=== PATIENT | male | born 1975 ===

== ENCOUNTER 2016-12-11 20:26 | Observation (INO) | payer MEDICARE ==
[2016-12-11 20:26] VITALS: BMI 33.5
--- NOTE | 2016-12-11 21:22 | ED PDOC ---
HPI: Psych/Substance Abuse Time Seen by Provider: 12/11/16 21:21 Chief Complaint (Nursing): Alcohol Ingestion Chief Complaint (Provider): alcohol ingestion History Per: Patient, Family (40 y/o male sent to ED for evaluation of aggressive behavior threatening mother and brother that he "would kill them." Admits to drinking. Mother states he has h/o Bipolar disorder and h/o drug abuse. Mother states she feels unsafe.) Past Medical History Reviewed: Historical Data, Nursing Documentation, Vital Signs Vital Signs: Last Vital Signs Temp 98 F 12/11/16 20:28 Pulse 110 H 12/11/16 20:28 Resp 18 12/11/16 20:28 BP 133/95 H 12/11/16 20:28 Pulse Ox 99 12/11/16 20:28 - Medical History PMH: Anxiety, Back Problems, Diabetes, HTN Denies: Arthritis, CHF, COPD, HIV, Hypercholesterolemia, Hypothyroidism, Chronic Kidney Disease, Rheumatoid Arthritis - Surgical History Surgical History: Appendectomy, Back Surgery (neck fusion) - Family History Family History: States: Unknown Family Hx - Immunization History Hx Tetanus Toxoid Vaccination: No Hx Influenza Vaccination: Yes Hx Pneumococcal Vaccination: No - Home Medications Home Medications: Ambulatory Orders Medication Instructions Recorded Exenatide Microspheres [Bydureon] 2 mg IM ONCE 09/09/15 Meclizine [Meclizine*] 25 mg PO TID 09/09/15 Metformin HCl [Glumetza] 1,000 mg PO DAILY 09/09/15 Olmesartan Medoxomil [Benicar] 40 mg PO DAILY 09/09/15 ALPRAZolam [Xanax] 0.5 mg PO BID PRN 09/14/15 Acetaminophen [Tylenol 325mg tab] 650 mg PO Q4 PRN #0 tab 09/14/15 Alprazolam [Xanax Xr] 0.5 mg PO BID PRN #0 09/14/15 Amitriptyline [Elavil] 25 mg PO HS #0 tab 09/14/15 Cyclobenzaprine [Flexeril] 10 mg PO TID PRN #0 tab 09/14/15 Dexamethasone [Decadron Inj] 4 mg IVPB 0600,1400,2200 09/14/15 Docusate [Colace] 100 mg PO BID #0 cap 02/05/16 Famotidine [Pepcid] 20 mg PO DAILY #0 tab 09/14/15 HYDROmorphone [Dilaudid] 2 mg IVP Q3 PRN #0 syr 09/14/15 Losartan [Cozaar] 100 mg PO DAILY #0 tab 09/14/15 Magnesium Hydroxide [Milk Of 15 ml PO DAILY #0 udc 09/14/15 Magnesia] Metformin HCl [Glucophage] 1,000 mg PO DAILY 09/14/15 Ondansetron [Zofran Tab] 4 mg PO QID PRN #0 tab 09/14/15 Zolpidem [Ambien] 5 mg PO HS PRN #0 tab 09/14/15 oxyCODONE [oxyCONTIN Extended 20 mg PO Q8 #0 tabsr 09/14/15 Release Tab] - Allergies Allergies/Adverse Reactions: Allergies Allergy/AdvReac Type Severity Reaction Status Date / Time No Known Allergies Allergy Verified 11/30/16 00:19 Review of Systems ROS Statement: Except As Marked, All Systems Reviewed And Found Negative Physical Exam - Reviewed Nursing Documentation Reviewed: Yes Vital Signs Reviewed: Yes - Physical Exam Appears: Positive for: Well, Non-toxic, No Acute Distress Head Exam: Positive for: ATRAUMATIC, NORMAL INSPECTION, NORMOCEPHALIC Skin: Positive for: Normal Color, Warm, DRY Eye Exam: Positive for: EOMI, Normal appearance, PERRL ENT: Positive for: Normal ENT Inspection Neck: Positive for: Normal, Painless ROM Cardiovascular/Chest: Positive for: Regular Rate, Rhythm Respiratory: Positive for: CNT, Normal Breath Sounds Gastrointestinal/Abdominal: Positive for: Normal Exam, Bowel Sounds, Soft Back: Positive for: Normal Inspection Extremity: Positive for: Normal ROM Neurologic/Psych: Positive for: Alert, Oriented - Laboratory Results Result Diagrams: 12/11/16 21:50 12/11/16 21:50 - ECG O2 Sat by Pulse Oximetry: 99 - Progress ED Course And Treament: SEEN BY CRISIS. D/W WITH DR. KABA PATIENT TO BE [place] [facility] OBSERVATION Date of observation admission: 12/12/16 Time of observation admission: 14:50 - Observation admission statement Patient is being placed in observation because:: PATIENT NEEDS ADDITIONAL EVALUATION AND WILL BE SCREENED BY [facility] PATIENT REQUIRES 1:1 OBSERVATION UNTIL THIS SCREENING. Disposition - Clinical Impression Clinical Impression: Alcohol ingestion, Aggressive behavior - Patient ED Disposition Is Patient to be Admitted: Transfer of Care - Disposition Disposition: Transfer of Care Disposition Time: 05:50 Condition: FAIR Patient Signed Over To: Leonard Valenzuela Handoff Comments: pending [facility] screener
[2016-12-11 21:55] LABS: BASO % 0.4 % (0.0-2.0); EOS # 0.3 K/uL (0.0-0.7); EOS % 3.4 % (0.0-4.0); LYMPH # 2.3 K/uL (1.0-4.3); LYMPH % 30.2 % (20.0-40.0); MEAN CELL VOLUME 90.6 fl (80.0-94.0); MEAN CORPUSCULAR HEMOGLOBIN 30.7 pg (27.0-31.0); MEAN CORPUSCULAR HGB CONC 33.9 g/dL (33.0-37.0); MEAN PLATELET VOLUME 7.8 fl (7.2-11.7); MONO # 0.8 K/uL (0.0-0.8); MONO % 10.9 % (0.0-10.0); NEUT # 4.2 K/uL (1.8-7.0); NEUT % 55.1 % (50.0-75.0); NRBC % 0.1 % (0.0-0.0); RED CELL DISTRIBUTION WIDTH 12.7 % (11.5-14.5); WHITE BLOOD COUNT 7.6 K/uL (4.8-10.8)
[2016-12-11 22:06] LABS: ALB/GLOB RATIO 1.1 (1.0-2.1); ALCOHOL SERUM 226 mg/dl (0-10); ALKALINE PHOSPHATASE 62 U/L (38-126); ALT/SGPT 128 U/L (21-72); AST/SGOT 72 U/L (17-59); BILIRUBIN,TOTAL 0.3 mg/dl (0.2-1.3); BLOOD UREA NITROGEN 16 mg/dl (9-20); CALCIUM 9.3 mg/dL (8.4-10.2); CARBON DIOXIDE 19 mmol/L (22-30); CHLORIDE 112 mmol/L (98-107); GFR AFRICAN-AMERICAN > 60; GLUCOSE,RANDOM 129 mg/dL (75-110); POTASSIUM 4.1 MMOL/L (3.6-5.0); SODIUM 147 mmol/l (132-148)
--- NOTE | 2016-12-12 06:08 | ED PDOC ---
- Laboratory Results Result Diagrams: 12/11/16 21:50 12/11/16 21:50 - ECG O2 Sat by Pulse Oximetry: 99 Medical Decision Making Medical Decision Making: Patient s/o from Brenden Gallardo PA-C at 0600 pending [facility] screener evaluation. Patient s/o to Dr. Adair at 0700 pending [facility] screener evaluation. Scribe Attestation: Documented by Angelic Broderick acting as a scribe for Leonard Valenzuela MD. Provider Scribe Attestation: All medical record entries made by the Scribe were at my direction and personally dictated by me. I have reviewed the chart and agree that the record accurately reflects my personal performance of the history, physical exam, medical decision making, and the department course for this patient. I have also personally directed, reviewed, and agree with the discharge instructions and disposition. Disposition - Clinical Impression Clinical Impression: Alcohol ingestion, Aggressive behavior - POA Present On Arrival: None - Disposition Disposition: Transfer of Care Disposition Time: 02:51 Condition: FAIR Patient Signed Over To: Murali Adair Handoff Comments: pending [facility] screener evaluation
--- NOTE | 2016-12-12 07:16 | ED PDOC ---
- Laboratory Results Result Diagrams: 12/11/16 21:50 12/11/16 21:50 - ECG O2 Sat by Pulse Oximetry: 99 - Progress ED Course And Treament: 1510: [facility] pending. Dr. Olmedo to take over and fu. Medical Decision Making Medical Decision Making: Time: 0700 Patient signed out by Dr. Valenzuela pending [facility] screener evaluation. Scribe Attestation: Documented by Jaycee Mosley acting as a scribe for Marietta Adair MD MD Scribe Attestation: All medical record entries made by the Scribe were at my direction and personally dictated by me. I have reviewed the chart and agree that the record accurately reflects my personal performance of the history, physical exam, medical decision making, and the department course for this patient. I have also personally directed, reviewed, and agree with the discharge instructions and disposition. Disposition - Clinical Impression Clinical Impression: Alcohol ingestion, Aggressive behavior - POA Present On Arrival: None - Disposition Disposition: Transfer of Care Disposition Time: 15:11 Condition: FAIR
[2016-12-12 08:29] VITALS: RESP 18
--- NOTE | 2016-12-12 08:52 | CARD ---
APPROVED REPORT EKG Measurement Heart [id number] MI 128P15 [id number] <Conclusion> Normal sinus rhythm Right bundle branch block Possible Inferior infarct, age undetermined Abnormal ECG
--- NOTE | 2016-12-12 15:22 | ED PDOC ---
- Laboratory Results Result Diagrams: 12/11/16 21:50 12/11/16 21:50 - ECG O2 Sat by Pulse Oximetry: 99 Medical Decision Making Medical Decision Makin: Patient is being transfered to Dr. Olmedo pending [facility] screening. 1530 Evaluated by CW and [facility] screener. Pt stable for discharge. Scribe~Attestation: Documented by Hanna Montanez acting as a scribe for Dr. Adry Olmedo MD. Provider Scribe Attestation: All medical record entries made by the Scribe were at my direction and personally dictated by me. I have reviewed the chart and agree that the record accurately reflects my personal performance of the history, physical exam, medical decision making, and the department course for this patient. I have also personally directed, reviewed, and agree with the discharge instructions and disposition. Disposition - Clinical Impression Clinical Impression: Alcohol ingestion, Aggressive behavior, Alcohol-induced psychosis - POA Present On Arrival: None - Disposition Disposition: Routine/Home Disposition Time: 03:00 Condition: IMPROVED
[2016-12-12 15:42] VITALS: BP 142/95; PULSE 85; TEMP 98.3; O2SAT 98
== END 2016-12-12 15:37 | disposition home or self-care (01) ==
LOC: H.ER 20:26 → H.EROBSV 12-12 02:51
PROVIDERS: ADMIT Emergency Medicine; ATTEND Emergency Medicine
DX: F10.159 Alcohol abuse with alcohol-induced psychotic disorder, unspecified (principal); Y90.7 Blood alcohol level of 200-239 mg/100 ml; E11.9 Type 2 diabetes mellitus without complications; I10 Essential (primary) hypertension; F41.9 Anxiety disorder, unspecified
CPT/HCPCS: 80053; 82948; 85025; 93005; 99285; G0378; G0480

== ENCOUNTER 2017-08-05 14:23 | Emergency (ER) | payer MEDICARE ==
[2017-08-05 14:23] VITALS: BMI 33.5
[2017-08-05 15:20] VITALS: BP 149/90; RESP 16; TEMP 97.5; O2SAT 100
[2017-08-05] MEDS ORDERED: Sodium Chloride 0.9% 1,000 ML IV STA (16:17)
--- NOTE | 2017-08-05 16:30 | ED PDOC ---
HPI: General Adult Time Seen by Provider: 08/05/17 15:20 Chief Complaint (Nursing): Alcohol Ingestion History Per: Patient Additional Complaint(s): Pt. states earlier this morning he woke up with his vertigo which is normal for him. Pt. states he took antivert and 45 minutes alter he developed "uncontrollable chills." States his whole body was shaking but he was alert and conscious. Symptoms lasted for 5 minutes then resolved on its own. Pt. reports feeling very cold. Also states that he's had cough and congestion x 2 days. Also reports to applying a lidocaine patch on his L shoulder and has been taking NyQuil without relief. Pt. admits to being an alcoholic previously and had a total of 8 drinks over the past 3 days. Last drink was at 2200 yesterday. Denies N/V/D, chest pain, SOB, abdominal pain, incontinence, LOC, headache, rash. Past Medical History Reviewed: Historical Data, Nursing Documentation, Vital Signs Vital Signs: Last Vital Signs Temp 97.5 F L 08/05/17 15:19 Pulse 78 08/05/17 15:19 Resp 16 08/05/17 15:19 BP 149/90 08/05/17 15:19 Pulse Ox 100 08/05/17 16:41 - Medical History PMH: Anxiety, Back Problems, Diabetes, HTN Denies: Arthritis, CHF, COPD, Hepatitis, HIV, Hypercholesterolemia, Hypothyroidism, Chronic Kidney Disease, Rheumatoid Arthritis, Seizures, Sexually Transmitted Disease - Surgical History Surgical History: Appendectomy, Back Surgery (neck fusion x 2 last time a year ago) - Family History Family History: States: Unknown Family Hx - Immunization History Hx Tetanus Toxoid Vaccination: No Hx Influenza Vaccination: Yes Hx Pneumococcal Vaccination: No - Home Medications Home Medications: Ambulatory Orders Medication Instructions Recorded Dextroamphetamine/Amphetamine 20 mg PO BID 05/07/17 [Adderall 20 mg Tablet] Febuxostat [Uloric] 40 mg PO DAILY 05/07/17 Ibuprofen/Famotidine [Duexis 26.6 1 tab PO BID PRN 05/07/17 mg-800 mg] LORazepam [Ativan] 0.5 mg PO DAILY 05/07/17 Meclizine [Antivert] 25 mg PO TID #21 tab 05/08/17 Ondansetron ODT [Zofran ODT] 1 odt PO BID PRN #6 odt 05/08/17 - Allergies Allergies/Adverse Reactions: Allergies Allergy/AdvReac Type Severity Reaction Status Date / Time No Known Allergies Allergy Verified 05/07/17 21:47 Review of Systems ROS Statement: Except As Marked, All Systems Reviewed And Found Negative Physical Exam - Reviewed Nursing Documentation Reviewed: Yes Vital Signs Reviewed: Yes - Physical Exam Appears: Positive for: Well, Non-toxic, No Acute Distress Head Exam: Positive for: ATRAUMATIC, NORMAL INSPECTION, NORMOCEPHALIC Skin: Positive for: Normal Color, Warm. Negative for: Rash Eye Exam: Positive for: EOMI, Normal appearance, PERRL ENT: Positive for: Normal ENT Inspection Neck: Positive for: Normal, Painless ROM Cardiovascular/Chest: Positive for: Regular Rate, Rhythm Respiratory: Positive for: CNT, Normal Breath Sounds Gastrointestinal/Abdominal: Positive for: Normal Exam, Bowel Sounds, Soft. Negative for: Tenderness Back: Positive for: Normal Inspection Extremity: Positive for: Normal ROM Neurologic/Psych: Positive for: Alert, Oriented, Other (no tremors noted). Negative for: Aphasia, Facial Droop - Laboratory Results Result Diagrams: 08/05/17 17:09 08/05/17 17:09 - ECG ECG: Positive for: Interpreted By Me ECG Rhythm: Positive for: Sinus Rhythm. Negative for: ST/T Changes Rate: 75 O2 Sat by Pulse Oximetry: 100 - Progress ED Course And Treament: Labs ordered. IV NS bolus ordered. Re-evaluation Time: 18:16 Condition: Re-examined Disposition - Clinical Impression Clinical Impression: Viral syndrome - Patient ED Disposition Is Patient to be Admitted: No - Disposition Referrals: [facility] [Outside] [facility] [Outside] Disposition: Routine/Home Disposition Time: 18:17 Condition: IMPROVED Additional Instructions: Follow up with [facility] in 2 days for further evaluation. Return to ED immediately for any concerns or questions. Instructions: Viral Syndrome (ED) Forms: [employer] ([place])
[2017-08-05 17:16] LABS: BASO % 0.7 % (0.0-2.0); EOS % 0.4 % (0.0-4.0); HEMATOCRIT 43.7 % (35.0-51.0); LYMPH % 16.5 % (20.0-40.0); MEAN CELL VOLUME 92.9 fl (80.0-94.0); MEAN CORPUSCULAR HEMOGLOBIN 31.2 pg (27.0-31.0); MEAN CORPUSCULAR HGB CONC 33.6 g/dL (33.0-37.0); MEAN PLATELET VOLUME 7.6 fl (7.2-11.7); MONO # 0.6 K/uL (0.0-0.8); NEUT # 4.6 K/uL (1.8-7.0); NEUT % 73.4 % (50.0-75.0); RED CELL DISTRIBUTION WIDTH 13.4 % (11.5-14.5); WHITE BLOOD COUNT 6.2 K/uL (4.8-10.8)
[2017-08-05 17:19] LABS: RBC URINE < 1 /hpf (0-3); URINE BILIRUBIN NEGATIVE (NEGATIVE); URINE BLOOD NEGATIVE (NEGATIVE); URINE COLOR STRAW (YELLOW); URINE GLUCOSE (UA) NEG (Normal); URINE KETONE NEGATIVE (NEGATIVE); URINE LEUKOCYTE ESTERASE NEG Leu/uL (Negative); URINE PROTEIN NEGATIVE (NEGATIVE); URINE UROBILINOGEN 0.2-1.0 mg/dL (0.2-1.0); WBC URINE < 1 /hpf (0-5)
[2017-08-05 17:27] LABS: ALB/GLOB RATIO 1.3 (1.0-2.1); ALCOHOL SERUM < 10 mg/dl (0-10); ALKALINE PHOSPHATASE 56 U/L (38-126); ALT/SGPT 57 U/L (21-72); AST/SGOT 47 U/L (17-59); BILIRUBIN,TOTAL 0.6 mg/dl (0.2-1.3); BLOOD UREA NITROGEN 12 mg/dl (9-20); CALCIUM 9.2 mg/dL (8.4-10.2); CARBON DIOXIDE 28 mmol/L (22-30); CHLORIDE 101 mmol/L (98-107); GFR AFRICAN-AMERICAN > 60; GLUCOSE,RANDOM 105 mg/dL (75-110); POTASSIUM 3.8 MMOL/L (3.6-5.0); SODIUM 137 mmol/l (132-148); TOTAL PROTEIN 8.1 G/DL (6.3-8.2)
[2017-08-05 18:18] VITALS: PULSE 75
--- NOTE | 2017-08-06 09:29 | CARD ---
APPROVED REPORT EKG Measurement Heart [id number] [place] 130P27 [id number] <Conclusion> Normal sinus rhythm Right bundle branch block Abnormal ECG
== END 2017-08-05 19:07 | disposition home or self-care (01) ==
LOC: H.ER 14:23
DX: B34.9 Viral infection, unspecified (principal); E11.9 Type 2 diabetes mellitus without complications; F41.9 Anxiety disorder, unspecified; I10 Essential (primary) hypertension
CPT/HCPCS: 80053; 81003; 85025; 87040; 87804; 93005; 99283; G0480; J7040

== ENCOUNTER 2018-01-17 13:28 | Inpatient (IN) | payer MEDICARE ==
[2018-01-17 13:29] VITALS: BMI 33.5
[2018-01-17] MEDS ORDERED: Famotidine 20mg/50ml Premix IVPB STA (13:52)
[2018-01-17] MEDS ORDERED: Sodium Chloride 0.9% 1,000 ML IV STA (13:52)
--- NOTE | 2018-01-17 13:55 | ED PDOC ---
HPI: Abdomen Time Seen by Provider: 01/17/18 13:49 Chief Complaint (Nursing): GI Problem History Per: Patient Onset/Duration Of Symptoms: Days (1) Current Symptoms Are (Timing): Still Present Context: Food Severity: Moderate Location Of Pain/Discomfort: Epigastric Quality Of Discomfort: Unable To Describe Associated Symptoms: Nausea, Vomiting, Diarrhea. denies: Fever, Urinary Symptoms Exacerbating Factors: None Alleviating Factors: None Additional Complaint(s): Epigastric abd pain assoc with NVD since this AM. Denies fever or blood in stool or vomitus. Past Medical History Vital Signs: Last Vital Signs Temp 98.5 F 01/17/18 13:45 Pulse 123 H 01/17/18 13:45 Resp 16 01/17/18 13:45 BP 164/94 H 01/17/18 13:45 Pulse Ox 97 01/17/18 13:56 - Medical History PMH: Anxiety, Back Problems, Diabetes, HTN Denies: Arthritis, CHF, COPD, Hepatitis, HIV, Hypercholesterolemia, Hypothyroidism, Chronic Kidney Disease, Rheumatoid Arthritis, Seizures, Sexually Transmitted Disease - Surgical History Surgical History: Appendectomy, Back Surgery (neck fusion x 2 last time a year ago) - Family History Family History: States: Unknown Family Hx - Immunization History Hx Tetanus Toxoid Vaccination: No Hx Influenza Vaccination: Yes Hx Pneumococcal Vaccination: No - Home Medications Home Medications: Ambulatory Orders Medication Instructions Recorded Dextroamphetamine/Amphetamine 20 mg PO BID 05/07/17 [Adderall 20 mg Tablet] Febuxostat [Uloric] 40 mg PO DAILY 05/07/17 Ibuprofen/Famotidine [Duexis 26.6 1 tab PO BID PRN 05/07/17 mg-800 mg] LORazepam [Ativan] 0.5 mg PO DAILY 05/07/17 Meclizine [Antivert] 25 mg PO TID #21 tab 05/08/17 Ondansetron ODT [Zofran ODT] 1 odt PO BID PRN #6 odt 05/08/17 - Allergies Allergies/Adverse Reactions: Allergies Allergy/AdvReac Type Severity Reaction Status Date / Time No Known Allergies Allergy Verified 01/17/18 13:45 Review of Systems ROS Statement: Except As Marked, All Systems Reviewed And Found Negative Gastrointestinal: Positive for: Nausea, Vomiting, Abdominal Pain, Diarrhea Physical Exam - Reviewed Nursing Documentation Reviewed: Yes Vital Signs Reviewed: Yes - Physical Exam Appears: Positive for: Non-toxic, Uncomfortable Head Exam: Positive for: ATRAUMATIC, NORMAL INSPECTION, NORMOCEPHALIC Skin: Positive for: Normal Color, Warm, DRY Eye Exam: Positive for: EOMI, Normal appearance, PERRL ENT: Positive for: Normal ENT Inspection Neck: Positive for: Normal, Painless ROM Cardiovascular/Chest: Positive for: Regular Rate, Rhythm Respiratory: Positive for: CNT, Normal Breath Sounds Gastrointestinal/Abdominal: Positive for: Soft, Tenderness (epigastric) Back: Positive for: Normal Inspection Extremity: Positive for: Normal ROM Neurologic/Psych: Positive for: Alert, Oriented - Laboratory Results Result Diagrams: 01/17/18 13:50 01/17/18 13:50 - ECG O2 Sat by Pulse Oximetry: 97 Disposition - Clinical Impression Clinical Impression: Cholecystitis - Patient ED Disposition Is Patient to be Admitted: Yes - Disposition Disposition Time: 16:24 Condition: FAIR Forms: [employer] ([place]) - Pt Status Changed To: Hospital Disposition Of: Inpatient - Admit Certification Admit to Inpatient:: After my assessment, the patient will require hospitalization for at least two midnights. This is because of the severity of symptoms shown, intensity of services needed, and/or the medical risk in this patient being treated as an outpatient. - POA Present On Arrival: None
[2018-01-17 14:12] LABS: BASO % 0.5 % (0.0-2.0); EOS # 0.1 K/uL (0.0-0.7); EOS % 0.6 % (0.0-4.0); HEMOGLOBIN 17.6 g/dL (12.0-18.0); LYMPH # 1.9 K/uL (1.0-4.3); LYMPH % 18.7 % (20.0-40.0); MEAN CELL VOLUME 91.5 fl (80.0-94.0); MEAN CORPUSCULAR HEMOGLOBIN 31.2 pg (27.0-31.0); MEAN CORPUSCULAR HGB CONC 34.1 g/dL (33.0-37.0); MEAN PLATELET VOLUME 7.9 fl (7.2-11.7); MONO # 0.9 K/uL (0.0-0.8); MONO % 9.4 % (0.0-10.0); NEUT # 7.1 K/uL (1.8-7.0); NEUT % 70.8 % (50.0-75.0); NRBC % 0.2 % (0.0-0.0); RBC 5.62 Mil/uL (4.40-5.90); RED CELL DISTRIBUTION WIDTH 13.1 % (11.5-14.5)
[2018-01-17 14:18] LABS: ALBUMIN 4.5 g/dL (3.5-5.0); CALCIUM 9.2 mg/dL (8.4-10.2); GFR AFRICAN-AMERICAN > 60; GFR NON-AFRICAN AMERICAN > 60; LIPASE 130 U/L (23-300)
[2018-01-17 14:21] LABS: ALT/SGPT 119 U/L (21-72); AST/SGOT 99 U/L (17-59); BLOOD UREA NITROGEN 9 mg/dl (9-20)
[2018-01-17] MEDS ORDERED: Famotidine 20mg/50ml 20 MG/50 ML BAG IVPB ONE (14:22)
--- NOTE | 2018-01-17 16:12 | US ---
HISTORY: elevated LFTs COMPARISON: None. TECHNIQUE: Sonographic evaluation of the right upper quadrant of the abdomen. FINDINGS: LIVER: At the upper limits of normal in size, measuring 17.2 cm in length. Increased echogenicity of the liver parenchyma. No mass. No intrahepatic bile duct dilatation. GALLBLADDER: Cholelithiasis with borderline gallbladder wall thickening. Sonographic Liu's sign was elicited. COMMON BILE DUCT: Measures 5 mm. No stones. No dilatation. PANCREAS: Not well visualized RIGHT KIDNEY: Measures 11.5 x 6.3 x 5.9 cm in length. Normal echogenicity. No calculus, mass, or hydronephrosis. AORTA: No aneurysmal dilatation. IVC: Unremarkable. OTHER FINDINGS: None . IMPRESSION: Cholelithiasis with borderline gallbladder wall thickening and positive sonographic Liu's sign. Findings are suspicious for acute cholecystitis. Borderline hepatomegaly with steatosis.
[2018-01-17] MEDS ORDERED: Piperacillin/Tazobact 3.375 GM in Sodium Chloride 0.9% 100 ML IVPB STA (16:24)
[2018-01-17] MEDS ORDERED: Piperacillin/Tazobact 3.375 gm Inj IVPB ONE (17:17)
--- NOTE | 2018-01-17 17:22 | CP.PCM.CON ---
History of Present Illness - History of Present Illness History of Present Illness: General Surgery Consult Note: Dr. Szymanski 42M with PMHx of HTN, DM, presents to [facility] ED with complaints of nausea/ vomiting. Patient reports yesterday night he had a large dinner consisting of fish, chick, and medium rare steak. He reports hours after having dinner he began having projectile vomiting and diarrhea. Patient reports having multiple bouts of emesis and diarrhea since the onset early this morning. Patient reports abdominal pain is generalized and secondary to multiple bouts of non- bloody emesis and diarrhea. He denies fever/chills, chest pain, shortness of breath, dysuria. PMHx: HTN, DM PSurgHx: Cervical spine fusion, lumbar spine fusion, Open Appendectomy(2006) Allergies: NKDA Fam Hx: Non-contributory Review of Systems - Review of Systems Review of Systems: 12 pt ROS unremarkable except as stated in HPI Past Patient History - Infectious Disease Hx of Infectious Diseases: None - Past Medical History & Family History Past Medical History?: Yes - Past Social History Smoking Status: Light Smoker < 10 Cigarettes Daily - CARDIAC Hx Congestive Heart Failure: No Hx Hypercholesterolemia: No Hx Hypertension: Yes - PULMONARY Hx Chronic Obstructive Pulmonary Disease (COPD): No - NEUROLOGICAL Hx Seizures: No - HEENT Hx HEENT Problems: No - RENAL Hx Chronic Kidney Disease: No - ENDOCRINE/METABOLIC Hx Hypothyroidism: No - HEMATOLOGICAL/ONCOLOGICAL Hx Human Immunodeficiency Virus (HIV): No - INTEGUMENTARY Hx Dermatological Problems: No - MUSCULOSKELETAL/RHEUMATOLOGICAL Hx Arthritis: No Hx Rheumatoid Arthritis: No - GASTROINTESTINAL Hx Gastrointestinal Disorders: No - GENITOURINARY/GYNECOLOGICAL Hx Sexually Transmitted Disorders: No - PSYCHIATRIC Hx Anxiety: Yes - SURGICAL HISTORY Hx Appendectomy: Yes - ANESTHESIA Hx Anesthesia: Yes Hx Anesthesia Reactions: No Meds Allergies/Adverse Reactions: Allergies Allergy/AdvReac Type Severity Reaction Status Date / Time No Known Allergies Allergy Verified 01/17/18 13:45 - Medications Medications: Current Medications Sodium Chloride (Sodium Chloride 0.9%) 1,000 mls @ 100 mls/hr IV .Q10H STA Stop: 01/17/18 23:51 Last Admin: 01/17/18 14:24 Dose: 100 mls/hr Piperacillin Sod/Tazobactam (Sod 3.375 gm/ Sodium Chloride) 100 mls @ 100 mls/ hr IVPB STAT STA PRN Reason: Protocol Stop: 01/17/18 17:23 Physical Exam - Constitutional Appears: Non-toxic, No Acute Distress - Head Exam Head Exam: NORMOCEPHALIC - Eye Exam Eye Exam: EOMI, Normal appearance - ENT Exam ENT Exam: Mucous Membranes Moist - Respiratory Exam Respiratory Exam: NORMAL BREATHING PATTERN - Cardiovascular Exam Cardiovascular Exam: +S1, +S2 - GI/Abdominal Exam GI & Abdominal Exam: Distended, Soft. absent: Firm, Guarding, Rebound, Rigid, Tenderness - Neurological Exam Neurological exam: Alert, Oriented x3 - Psychiatric Exam Psychiatric exam: Normal Mood - Skin Skin Exam: Dry, Intact, Warm Results - Vital Signs Recent Vital Signs: Last Vital Signs Temp 98.5 F 01/17/18 13:45 Pulse 123 H 01/17/18 13:45 Resp 16 01/17/18 13:45 BP 164/94 H 01/17/18 13:45 Pulse Ox 97 01/17/18 16:24 - Labs Result Diagrams: 01/17/18 13:50 01/17/18 13:50 Labs: Laboratory Results - last 24 hr 01/17/18 01/17/18 13:50 13:50 WBC 10.0 D RBC 5.62 Hgb 17.6 D Hct 51.4 H MCV 91.5 MCH 31.2 H MCHC 34.1 RDW 13.1 Plt Count 228 MPV 7.9 Neut % (Auto) 70.8 Lymph % (Auto) 18.7 L Cook % (Auto) 9.4 Eos % (Auto) 0.6 Baso % (Auto) 0.5 Neut # (Auto) 7.1 H Lymph # (Auto) 1.9 Cook # (Auto) 0.9 H Eos # (Auto) 0.1 Baso # (Auto) 0.0 Sodium 140 Potassium 4.3 Chloride 102 Carbon Dioxide 22 Anion Gap 20 BUN 9 Creatinine 0.8 Est GFR ( Amer) > 60 Est GFR (Non-Af Amer) > 60 Random Glucose 143 H Calcium 9.2 Total Bilirubin 1.0 AST 99 H D ALT 119 H D Alkaline Phosphatase 79 Total Protein 8.9 H Albumin 4.5 Globulin 4.4 H Albumin/Globulin Ratio 1.0 Lipase 130 Assessment & Plan - Assessment and Plan (Free Text) Assessment: 42M with gastroenteritis likely 2/2 food poisoning Plan: -Will maintain patient NPO for now -IVF -Based on patient's clinical outcome, may begin a liquid diet in AM -Patient's symptoms unlikely to stem from gallbladder pathology -Patient does have history of biliary colic in the past -May benefit from elective laparoscopic cholecystectomy. No plan for acute surgical intervention at this present time. -Anti-emetic prn Will continue to follow D/w Dr. Stephon Payan PGY2
[2018-01-17 17:44] LABS: VENOUS BLOOD GAS BASE EXCESS 3.7 mmol/L (0.0-2.0); VENOUS BLOOD GAS PCO2 43 mmHg (40-60); VENOUS BLOOD GAS PO2 47 mm/Hg (30-55); VENOUS BLOOD PH 7.43 (7.32-7.43)
[2018-01-18] MEDS: Piperacillin/Tazobact 3.375 GM in Sodium Chloride 0.9% 100 ML IVPB SCH ×4 (00:48→18:36)
[2018-01-18] MEDS ORDERED: Pneumococcal 23-Valent Vaccine IM ONE (06:00)
[2018-01-18 06:26] LABS: BASO % 0.7 % (0.0-2.0); EOS # 0.2 K/uL (0.0-0.7); HEMOGLOBIN 15.9 g/dL (12.0-18.0); LYMPH # 1.5 K/uL (1.0-4.3); LYMPH % 24.5 % (20.0-40.0); MEAN CELL VOLUME 91.1 fl (80.0-94.0); MEAN CORPUSCULAR HEMOGLOBIN 31.7 pg (27.0-31.0); MEAN CORPUSCULAR HGB CONC 34.9 g/dL (33.0-37.0); MEAN PLATELET VOLUME 7.9 fl (7.2-11.7); MONO # 0.7 K/uL (0.0-0.8); MONO % 11.8 % (0.0-10.0); NEUT # 3.6 K/uL (1.8-7.0); NRBC % 0.1 % (0.0-0.0); RBC 4.99 Mil/uL (4.40-5.90); RED CELL DISTRIBUTION WIDTH 13.1 % (11.5-14.5); WHITE BLOOD COUNT 5.9 K/uL (4.8-10.8)
[2018-01-18 07:04] LABS: ALB/GLOB RATIO 1.1 (1.0-2.1); ALBUMIN 3.6 g/dL (3.5-5.0); ALT/SGPT 103 U/L (21-72); AST/SGOT 84 U/L (17-59); BLOOD UREA NITROGEN 11 mg/dl (9-20); CALCIUM 8.4 mg/dL (8.4-10.2); GFR AFRICAN-AMERICAN > 60; GFR NON-AFRICAN AMERICAN > 60
--- NOTE | 2018-01-18 09:27 | CP.PCM.PN ---
Subjective - Date & Time of Evaluation Date of Evaluation: 01/18/18 Time of Evaluation: 07:05 - Subjective Subjective: Surgery progress note. Dr. Szymanski Pt seen and examined at bedside. No acute events overnight. Still c/o some nausea and cough. No new complaints. Denies abdominal pain, no RUQ tenderness. No F/C. No CP/SOB. Objective - Vital Signs/Intake and Output Vital Signs (last 24 hours): Temp Pulse Resp BP Pulse Ox 98 F 75 19 148/92 H 98 01/18/18 07:51 01/18/18 07:51 01/18/18 07:51 01/18/18 07:51 01/18/18 07:51 - Medications Medications: Current Medications Hydromorphone HCl (Dilaudid) 1 mg IVP Q4 PRN PRN Reason: Pain, severe (8-10) Lactated Ringer's (Lactated Ringer's) 1,000 mls @ 150 mls/hr IV .Q6H40M [facility] Dextrose/Lactated Ringer's (Dextrose 5%/Lactated Ringer's) 1,000 mls @ 100 mls/ hr IV .Q10H [facility] Stop: 01/18/18 23:36 Last Admin: 01/18/18 00:00 Dose: 100 mls/hr Piperacillin Sod/Tazobactam (Sod 3.375 gm/ Sodium Chloride) 100 mls @ 100 mls/ hr IVPB Q6H LUANA PRN Reason: Protocol Last Admin: 01/18/18 05:09 Dose: 100 mls/hr Ondansetron HCl (Zofran Odt) 4 mg PO Q8H PRN PRN Reason: Nausea/Vomiting Pantoprazole Sodium (Protonix Inj) 40 mg IVP DAILY [facility] Last Admin: 01/18/18 08:14 Dose: 40 mg - Labs Labs: 01/18/18 05:35 01/18/18 05:35 - Constitutional Appears: Non-toxic, No Acute Distress - Head Exam Head Exam: ATRAUMATIC, NORMAL INSPECTION, NORMOCEPHALIC - Eye Exam Eye Exam: EOMI, Normal appearance - ENT Exam ENT Exam: Mucous Membranes Moist - Respiratory Exam Respiratory Exam: NORMAL BREATHING PATTERN. absent: Accessory Muscle Use, Respiratory Distress - GI/Abdominal Exam GI & Abdominal Exam: Soft. absent: Distended, Firm, Guarding, Rigid, Tenderness , Rebound - Extremities Exam Extremities Exam: Normal Inspection. absent: Calf Tenderness - Neurological Exam Neurological Exam: Alert, Awake, Oriented x3 - Skin Skin Exam: Dry, Intact, Normal Color, Warm Assessment and Plan - Assessment and Plan (Free Text) Assessment: 42yo M with gastroenteritis - Current symptoms unlikely secondary to gallbladder pathology Plan: - CLD. ADAT - May benefit from elective laparoscopic cholecystectomy as out-patient. No plan for acute surgical intervention at this present time. - Anti-emetics prn - pain management - Encourage OOBTC, Ambulation Further recs as per Dr. Stephon Maldonado PGY1 surgery pager: [phone]
--- NOTE | 2018-01-18 10:04 | CP.PCM.HP ---
History of Present Illness - History of Present Illness History of Present Illness: This is a 42 y/o male with hx of Gb stone, HTN DM 2 and recent weight gain, chronic back pain was admitted for abdominal apin and vomiting which started yesterday morning. Claims that he started having vague abdominal pain Saturday night after having a dinner. He denies fever or diarrhea. US showed gb stone and mild cholecystitis. Recently has gained 40 pounds since he fell 4 months ago. Hadprevious back surgery. He was on Metformin and bydureon for DM 2 but stopped when he lost weight last year. Present on Admission - Present on Admission Any Indicators Present on Admission: No History of DVT/PE: No History of Uncontrolled Diabetes: Yes Urinary Catheter: No Decubitus Ulcer Present: No Review of Systems - Constitutional Constitutional: Daytime Sleepiness, Weight Gain - Musculoskeletal Musculoskeletal: Abnormal Gait, Back Pain Past Patient History - Infectious Disease Hx of Infectious Diseases: None - Past Medical History & Family History Past Medical History?: Yes - Past Social History Smoking Status: Light Smoker < 10 Cigarettes Daily - CARDIAC Hx Congestive Heart Failure: No Hx Hypercholesterolemia: No Hx Hypertension: Yes - PULMONARY Hx Chronic Obstructive Pulmonary Disease (COPD): No - NEUROLOGICAL Hx Seizures: No Hx Vertigo: Yes - HEENT Hx HEENT Problems: No - RENAL Hx Chronic Kidney Disease: No - ENDOCRINE/METABOLIC Hx Hypothyroidism: No - HEMATOLOGICAL/ONCOLOGICAL Hx Human Immunodeficiency Virus (HIV): No - INTEGUMENTARY Hx Dermatological Problems: No - MUSCULOSKELETAL/RHEUMATOLOGICAL Hx Arthritis: No Hx Falls: No Hx Rheumatoid Arthritis: No - GASTROINTESTINAL Hx Gastrointestinal Disorders: No - GENITOURINARY/GYNECOLOGICAL Hx Sexually Transmitted Disorders: No - PSYCHIATRIC Hx Anxiety: Yes Hx Substance Use: No - SURGICAL HISTORY Hx Appendectomy: Yes Other/Comment: back surgery. neck fusion - ANESTHESIA Hx Anesthesia: Yes Hx Anesthesia Reactions: No Meds Allergies/Adverse Reactions: Allergies Allergy/AdvReac Type Severity Reaction Status Date / Time No Known Allergies Allergy Verified 01/17/18 13:45 Physical Exam - Head Exam Head Exam: NORMAL INSPECTION - Eye Exam Eye Exam: Normal appearance - ENT Exam ENT Exam: Mucous Membranes Moist - Respiratory Exam Respiratory Exam: Clear to Auscultation Bilateral - Cardiovascular Exam Cardiovascular Exam: REGULAR RHYTHM - GI/Abdominal Exam GI & Abdominal Exam: Normal Bowel Sounds, Tenderness - Neurological Exam Neurological exam: CN II-XII Intact - Psychiatric Exam Psychiatric exam: Normal Mood Results - Vital Signs Recent Vital Signs: Last Vital Signs Temp 98 F 01/18/18 07:51 Pulse 75 01/18/18 07:51 Resp 19 01/18/18 07:51 BP 148/92 H 01/18/18 07:51 Pulse Ox 98 01/18/18 07:51 - Labs Result Diagrams: 01/18/18 05:35 01/18/18 05:35 Labs: Laboratory Results - last 24 hr 01/17/18 01/17/18 01/17/18 13:50 13:50 17:39 WBC 10.0 D RBC 5.62 Hgb 17.6 D Hct 51.4 H MCV 91.5 MCH 31.2 H MCHC 34.1 RDW 13.1 Plt Count 228 MPV 7.9 Neut % (Auto) 70.8 Lymph % (Auto) 18.7 L [place] % (Auto) 9.4 Eos % (Auto) 0.6 Baso % (Auto) 0.5 Neut # (Auto) 7.1 H Lymph # (Auto) 1.9 [place] # (Auto) 0.9 H Eos # (Auto) 0.1 Baso # (Auto) 0.0 pO2 47 VBG pH 7.43 VBG pCO2 43 VBG HCO3 27.4 VBG Total CO2 29.8 H VBG O2 Sat (Calc) 88.2 H VBG Base Excess 3.7 H VBG Potassium 4.2 Glucose 113 H Lactate 2.0 FiO2 21.0 Sodium 140 140.0 Potassium 4.3 Chloride 102 104.0 Carbon Dioxide 22 Anion Gap 20 BUN 9 Creatinine 0.8 Est GFR ( Amer) > 60 Est GFR (Non-Af Amer) > 60 Random Glucose 143 H Calcium 9.2 Total Bilirubin 1.0 AST 99 H D ALT 119 H D Alkaline Phosphatase 79 Total Protein 8.9 H Albumin 4.5 Globulin 4.4 H Albumin/Globulin Ratio 1.0 Lipase 130 Venous Blood Potassium 4.2 01/18/18 01/18/18 05:35 05:35 WBC 5.9 RBC 4.99 Hgb 15.9 Hct 45.5 MCV 91.1 MCH 31.7 H MCHC 34.9 RDW 13.1 Plt Count 163 MPV 7.9 Neut % (Auto) 60.0 Lymph % (Auto) 24.5 [place] % (Auto) 11.8 H Eos % (Auto) 3.0 Baso % (Auto) 0.7 Neut # (Auto) 3.6 Lymph # (Auto) 1.5 [place] # (Auto) 0.7 Eos # (Auto) 0.2 Baso # (Auto) 0.0 pO2 VBG pH VBG pCO2 VBG HCO3 VBG Total CO2 VBG O2 Sat (Calc) VBG Base Excess VBG Potassium Glucose Lactate FiO2 Sodium 141 Potassium 3.7 Chloride 104 Carbon Dioxide 29 Anion Gap 12 BUN 11 Creatinine 0.9 Est GFR ( Amer) > 60 Est GFR (Non-Af Amer) > 60 Random Glucose 125 H Calcium 8.4 Total Bilirubin 1.2 AST 84 H ALT 103 H Alkaline Phosphatase 65 Total Protein 7.0 Albumin 3.6 Globulin 3.4 Albumin/Globulin Ratio 1.1 Lipase Venous Blood Potassium Assessment & Plan (1) Cholecystitis Status: Acute (2) Cholelithiasis Status: Acute (3) Diabetes mellitus Status: Acute (4) Diabetes mellitus type 2 in obese Status: Acute (5) Diabetes mellitus Status: Acute (6) Obesity Status: Acute (7) Chronic back pain Status: Acute - Assessment and Plan (Free Text) Plan: keep NPO Protonix Iv antibiotics Surgery eval
[2018-01-18] MEDS: HYDROmorphone 0.5 mg/0.5 ml ISec IVP PRN (20:32)
[2018-01-18] MEDS: Dextrose 5%/Lactated Ringer's 1,000 ML IV SCH ×3 (21:00→21:13)
[2018-01-19] MEDS: Piperacillin/Tazobact 3.375 GM in Sodium Chloride 0.9% 100 ML IVPB SCH ×8 (01:17→23:19)
[2018-01-19] MEDS: Lactated Ringer's 1,000 ML IV SCH ×5 (05:11→22:34)
[2018-01-19] MEDS: HYDROmorphone 0.5 mg/0.5 ml ISec IVP PRN ×2 (05:19→14:42)
[2018-01-19 06:28] LABS: BASO % 0.5 % (0.0-2.0); EOS # 0.3 K/uL (0.0-0.7); EOS % 4.4 % (0.0-4.0); HEMOGLOBIN 17.1 g/dL (12.0-18.0); LYMPH # 1.7 K/uL (1.0-4.3); LYMPH % 25.6 % (20.0-40.0); MEAN CELL VOLUME 91.1 fl (80.0-94.0); MEAN CORPUSCULAR HEMOGLOBIN 32.2 pg (27.0-31.0); MEAN CORPUSCULAR HGB CONC 35.3 g/dL (33.0-37.0); MONO # 0.7 K/uL (0.0-0.8); MONO % 10.6 % (0.0-10.0); NEUT % 58.9 % (50.0-75.0); NRBC % 0.1 % (0.0-0.0); RBC 5.31 Mil/uL (4.40-5.90); RED CELL DISTRIBUTION WIDTH 12.9 % (11.5-14.5); WHITE BLOOD COUNT 6.7 K/uL (4.8-10.8)
[2018-01-19 06:41] LABS: ALB/GLOB RATIO 1.1 (1.0-2.1); ALBUMIN 4.1 g/dL (3.5-5.0); ALT/SGPT 113 U/L (21-72); AST/SGOT 81 U/L (17-59); BLOOD UREA NITROGEN 8 mg/dl (9-20); GFR AFRICAN-AMERICAN > 60; GFR NON-AFRICAN AMERICAN > 60
--- NOTE | 2018-01-19 07:38 | PQF GENQUE ---
Dr. Bennett, The attending physician is required to clarify conflicting documentation in the medical record. The following documentation is noted in the medical record: Diagnosis 1: Acute: Cholecystitis and Cholilithiasis Documented by: Attending Location: H and P Diagnosis 2: Gastroenteritis likely 2/2 food poisioning Documented by: Surgery Location: Consult and progress note This form is a permanent part of the medical record Clarification of your documentation is requested to better reflect the severity of illness and intensity of treatment of your patient. Indicators present [] Specify: [] [] Specify: [] [] Specify: [] [] Specify: [] Location in the medical record that reflects the above clinical findings: [] Treatment Provided: [] PHYSICIAN'S RESPONSE Based on your medical judgment of the clinical indicators outlined above please clarify the following: [] Practitioner response [] If unable to determine, please check the box, sign and date. Present On Admission (POA) Indicator: [] Present at the time of admission [] Not present at the time of admission [] Clinically Undetermined In responding to this query, please exercise your independent professional judgment. The fact that a question is asked does not imply that any particular answer is desired or expected. Thank you for your clarification on this documentation. If you have any questions please call. * Thank you, Yomaira Kidd RN ext. #[phone] MTDD
--- NOTE | 2018-01-19 07:58 | CP.PCM.PN ---
Subjective - Date & Time of Evaluation Date of Evaluation: 01/19/18 Time of Evaluation: 06:50 - Subjective Subjective: Patient seen and examined. Reports having multiple bouts of diarrhea. Denies nausea/vomiting, abdominal pain, right upper quadrant pain. Afebrile. No leukocytosis. Objective - Vital Signs/Intake and Output Vital Signs (last 24 hours): Temp Pulse Resp BP Pulse Ox 97.9 F 79 20 147/88 99 01/19/18 07:48 01/19/18 07:48 01/19/18 07:48 01/19/18 07:48 01/19/18 07:48 - Medications Medications: Current Medications Hydromorphone HCl (Dilaudid) 1 mg IVP Q4 PRN PRN Reason: Pain, severe (8-10) Last Admin: 01/19/18 05:19 Dose: 1 mg Lactated Ringer's (Lactated Ringer's) 1,000 mls @ 150 mls/hr IV .Q6H40M [facility] Last Admin: 01/19/18 05:11 Dose: Not Given Piperacillin Sod/Tazobactam (Sod 3.375 gm/ Sodium Chloride) 100 mls @ 100 mls/ hr IVPB Q6H LUANA PRN Reason: Protocol Last Admin: 01/19/18 05:14 Dose: 100 mls/hr Lactobacillus Acidophilus (Bacid Acidophilus) 1 cap PO BID [facility] Ondansetron HCl (Zofran Odt) 4 mg PO Q8H PRN PRN Reason: Nausea/Vomiting Pantoprazole Sodium (Protonix Inj) 40 mg IVP DAILY [facility] Last Admin: 01/18/18 08:14 Dose: 40 mg - Labs Labs: 01/19/18 05:45 01/19/18 05:45 - Constitutional Appears: No Acute Distress - Head Exam Head Exam: NORMOCEPHALIC - Eye Exam Eye Exam: Normal appearance - ENT Exam ENT Exam: Mucous Membranes Moist - Respiratory Exam Respiratory Exam: NORMAL BREATHING PATTERN - Cardiovascular Exam Cardiovascular Exam: +S1, +S2 - GI/Abdominal Exam GI & Abdominal Exam: Soft. absent: Firm, Guarding, Rigid, Tenderness - Neurological Exam Neurological Exam: Alert, Awake, Oriented x3 - Psychiatric Exam Psychiatric exam: Normal Mood - Skin Skin Exam: Dry, Intact, Normal Color, Warm Assessment and Plan - Assessment and Plan (Free Text) Assessment: 42yo M with gastroenteritis Plan: - ADAT - May benefit from elective laparoscopic cholecystectomy as out-patient. No plan for acute surgical intervention at this present time. -F/u stool studies -Preliminary Blood Cx: Gram positive cocci - Anti-emetics prn - pain management - Encourage OOBTC, Ambulation Further recs as per Dr. Stephon Payan PGY2
[2018-01-19] MEDS: Lactobacillus Acidophilus 500 MU Cap PO SCH ×2 (09:10→16:46)
[2018-01-19] MEDS ORDERED: Artificial Tears Opht Soln OU PRN (09:58)
--- NOTE | 2018-01-19 10:04 | CARD ---
APPROVED REPORT EKG Measurement Heart [id number] <Conclusion> Normal sinus rhythm Right bundle branch block Cannot rule out Inferior infarct, age undetermined Abnormal ECG
--- NOTE | 2018-01-19 10:36 | RAD ---
HISTORY: n/v/cholecystitis COMPARISON: Chest radiograph dated 09/11/2015. FINDINGS: LUNGS: No active pulmonary disease. PLEURA: No significant pleural effusion identified, no pneumothorax apparent. CARDIOVASCULAR: Normal. OSSEOUS STRUCTURES: Anterior cervical fixation plate. Unchanged. VISUALIZED UPPER ABDOMEN: Normal. OTHER FINDINGS: None. IMPRESSION: No active disease.
--- NOTE | 2018-01-19 12:25 | CP.PCM.PN ---
Subjective - Date & Time of Evaluation Date of Evaluation: 01/19/18 Time of Evaluation: 09:10 - Subjective Subjective: Patient seen and examined this morning at bedside w/ Dr. Bennett. There are no acute events overnight, NAD. The patient denies abdominal pain, nausea, or vomiting. Patient reports diarrhea this morning. Patient denies headaches, chest pain, dizziness, dysuria, or fever. Objective - Vital Signs/Intake and Output Vital Signs (last 24 hours): Temp Pulse Resp BP Pulse Ox 97.9 F 79 20 147/88 99 01/19/18 07:48 01/19/18 07:48 01/19/18 07:48 01/19/18 07:48 01/19/18 07:48 - Medications Medications: Current Medications Artificial Tears (Artificial Tears) 2 drop OU Q4 PRN PRN Reason: Dry eyes Hydromorphone HCl (Dilaudid) 1 mg IVP Q4 PRN PRN Reason: Pain, severe (8-10) Last Admin: 01/19/18 05:19 Dose: 1 mg Lactated Ringer's (Lactated Ringer's) 1,000 mls @ 150 mls/hr IV .Q6H40M [facility] Last Admin: 01/19/18 05:11 Dose: Not Given Piperacillin Sod/Tazobactam (Sod 3.375 gm/ Sodium Chloride) 100 mls @ 100 mls/ hr IVPB Q6H LUANA PRN Reason: Protocol Last Admin: 01/19/18 05:14 Dose: 100 mls/hr Lactobacillus Acidophilus (Bacid Acidophilus) 1 cap PO BID [facility] Last Admin: 01/19/18 09:10 Dose: 1 cap Ondansetron HCl (Zofran Odt) 4 mg PO Q8H PRN PRN Reason: Nausea/Vomiting Pantoprazole Sodium (Protonix Inj) 40 mg IVP DAILY [facility] Last Admin: 01/19/18 08:59 Dose: 40 mg - Labs Labs: 01/19/18 05:45 01/19/18 05:45 - Constitutional Appears: Non-toxic, No Acute Distress - Head Exam Head Exam: ATRAUMATIC, NORMAL INSPECTION, NORMOCEPHALIC - Eye Exam Eye Exam: Normal appearance - ENT Exam ENT Exam: Mucous Membranes Moist - Neck Exam Neck Exam: Full ROM. absent: Tenderness - Respiratory Exam Respiratory Exam: Clear to Ausculation Bilateral. absent: Accessory Muscle Use , Decreased Breath Sounds, Rales, Rhonchi, Wheezes, Respiratory Distress - Cardiovascular Exam Cardiovascular Exam: REGULAR RHYTHM, RRR. absent: Tachycardia - GI/Abdominal Exam GI & Abdominal Exam: Soft, Normal Bowel Sounds. absent: Distended, Tenderness - Extremities Exam Extremities Exam: absent: Calf Tenderness - Neurological Exam Neurological Exam: Alert, Awake, Normal Gait, Oriented x3 - Skin Skin Exam: Dry, Intact, Normal Color, Warm Assessment and Plan (1) Cholecystitis Status: Acute (2) Obesity Status: Chronic - Assessment and Plan (Free Text) Plan: c/w present management afebrile, non-tachycardic, normotensive General Surgery recommendations appreciated zosyn 3.375 gm Iv Q6h day 3 IVF LR 1 L @ 150 mL/hr pain management: dilaudid 1 mg Iv Q4h prn f/u HIDA scan prophylactic measures: DVT SCDs monitor for acute changes
[2018-01-20] MEDS: Lactated Ringer's 1,000 ML IV SCH ×2 (00:50→05:37)
[2018-01-20] MEDS: Piperacillin/Tazobact 3.375 GM in Sodium Chloride 0.9% 100 ML IVPB SCH ×2 (05:19→15:42)
[2018-01-20] MEDS: HYDROmorphone 0.5 mg/0.5 ml ISec IVP PRN (05:29)
[2018-01-20 06:43] LABS: HEMOGLOBIN 16.5 g/dL (12.0-18.0); MEAN CELL VOLUME 90.4 fl (80.0-94.0); MEAN CORPUSCULAR HEMOGLOBIN 31.9 pg (27.0-31.0); MEAN CORPUSCULAR HGB CONC 35.3 g/dL (33.0-37.0); RBC 5.18 Mil/uL (4.40-5.90); RED CELL DISTRIBUTION WIDTH 12.9 % (11.5-14.5); WHITE BLOOD COUNT 6.4 K/uL (4.8-10.8)
[2018-01-20 06:50] LABS: ALB/GLOB RATIO 1.1 (1.0-2.1); ALBUMIN 3.9 g/dL (3.5-5.0); ALT/SGPT 96 U/L (21-72); AST/SGOT 78 U/L (17-59); BLOOD UREA NITROGEN 8 mg/dl (9-20); GFR AFRICAN-AMERICAN > 60; GFR NON-AFRICAN AMERICAN > 60
[2018-01-20 08:35] VITALS: BP 153/78; PULSE 66; RESP 20; TEMP 98; O2SAT 99
[2018-01-20] MEDS: Lactobacillus Acidophilus 500 MU Cap PO SCH (09:31)
--- NOTE | 2018-01-20 11:02 | CP.PCM.PN ---
Subjective - Date & Time of Evaluation Date of Evaluation: 01/20/18 Time of Evaluation: 10:54 - Subjective Subjective: General Surgery - Dr. Szymanski 42M seen and examined this AM. No acute events overnight. C/o neck and back pain. Denies N/V/abd pain. Stool sample collected, awaiting results. For HIDA scan today. Objective - Vital Signs/Intake and Output Vital Signs (last 24 hours): Temp Pulse Resp BP Pulse Ox 98.0 F 66 20 153/78 H 99 01/20/18 08:34 01/20/18 08:34 01/20/18 08:34 01/20/18 08:34 01/20/18 08:34 - Medications Medications: Current Medications Artificial Tears (Artificial Tears) 2 drop OU Q4 PRN PRN Reason: Dry eyes Last Admin: 01/19/18 17:47 Dose: 2 drop Hydromorphone HCl (Dilaudid) 1 mg IVP Q4 PRN PRN Reason: Pain, severe (8-10) Last Admin: 01/20/18 05:29 Dose: 1 mg Lactated Ringer's (Lactated Ringer's) 1,000 mls @ 150 mls/hr IV .Q6H40M [facility] Last Admin: 01/20/18 05:37 Dose: 150 mls/hr Piperacillin Sod/Tazobactam (Sod 3.375 gm/ Sodium Chloride) 100 mls @ 100 mls/ hr IVPB Q6H LUANA PRN Reason: Protocol Last Admin: 01/20/18 05:19 Dose: 100 mls/hr Lactobacillus Acidophilus (Bacid Acidophilus) 1 cap PO BID [facility] Last Admin: 01/20/18 09:31 Dose: 1 cap Ondansetron HCl (Zofran Odt) 4 mg PO Q8H PRN PRN Reason: Nausea/Vomiting Pantoprazole Sodium (Protonix Inj) 40 mg IVP DAILY [facility] Last Admin: 01/20/18 09:30 Dose: 40 mg Valsartan (Diovan) 160 mg PO HS [facility] Last Admin: 01/19/18 22:34 Dose: 160 mg - Labs Labs: 01/20/18 05:55 01/20/18 05:55 - Constitutional Appears: Non-toxic, No Acute Distress - Head Exam Head Exam: ATRAUMATIC, NORMAL INSPECTION - Eye Exam Eye Exam: EOMI, Normal appearance Pupil Exam: NORMAL ACCOMODATION - ENT Exam ENT Exam: Mucous Membranes Moist - Neck Exam Neck Exam: Full ROM - Respiratory Exam Respiratory Exam: NORMAL BREATHING PATTERN. absent: Respiratory Distress - Cardiovascular Exam Cardiovascular Exam: REGULAR RHYTHM - GI/Abdominal Exam GI & Abdominal Exam: Soft. absent: Distended, Firm, Tenderness - Extremities Exam Extremities Exam: Full ROM. absent: Tenderness - Neurological Exam Neurological Exam: Alert, Awake, Oriented x3 - Psychiatric Exam Psychiatric exam: Normal Affect, Normal Mood - Skin Skin Exam: Dry, Intact, Normal Color Assessment and Plan - Assessment and Plan (Free Text) Assessment: 42yo M with gastroenteritis Blood culture: coagulase neg staph Plan: NPO - for HIDA scan today Awaiting stool cultures IVF/abx Anti-emetics prn Pain control per primary Encourage ambulation No plan for acute surgical intervention at this time -May benefit from elective laparoscopic cholecystectomy Further recs per Dr. Szymanski
[2018-01-20] MEDS ORDERED: Oxycodone/Acetaminophen 5/325 mg Tab PO PRN (13:06)
[2018-01-20] MEDS ORDERED: Lidocaine 5% Patch TD SCH (13:15)
--- NOTE | 2018-01-20 14:49 | NM ---
PROCEDURE: Nuclear Medicine Hepatobiliary Scan HISTORY: n/v/d r/o cholecystitis COMPARISON: Abdomen ultrasound 01/17/2018. TECHNIQUE: 6.2 mCi of technetium 99m Mebrofenin was administered intravenously. Planar images of the abdomen were obtained at 5 min intervals to 60 mins. Delayed images were also obtained. FINDINGS: LIVER: Timely and homogenous uptake. COMMON BILE DUCT: identified at 5 mins. GALLBLADDER: identified at 10 mins. SMALL BOWEL: Identified at 20 mins. IMPRESSION: No nuclear evidence of cystic or common duct obstruction.
--- NOTE | 2018-01-20 15:08 | CP.PCM.DIS ---
Provider - Provider Date of Admission: 01/17/18 16:26 Attending physician: Sajan Bennett MD Time Spent in preparation of Discharge (in minutes): 15 Diagnosis - Discharge Diagnosis (1) Cholecystitis Status: Acute (2) Obesity Status: Chronic Hospital Course - Lab Results Lab Results: Micro Results 01/19/18 08:44 Blood Blood Culture - Preliminary NO GROWTH AFTER 24 HOURS 01/17/18 17:27 Blood-Venous S.aureus & Coag-Neg Staph PNA FISH - Final 01/17/18 17:27 Blood-Venous Blood Culture - Final Coagulase Neg Staphylococcus 01/17/18 17:27 Blood-Venous Gram Stain - Final Most Recent Lab Values WBC 6.4 K/uL (4.8-10.8) 01/20/18 05:55 RBC 5.18 Mil/uL (4.40-5.90) 01/20/18 05:55 Hgb 16.5 g/dL (12.0-18.0) 01/20/18 05:55 Hct 46.8 % (35.0-51.0) 01/20/18 05:55 MCV 90.4 fl (80.0-94.0) 01/20/18 05:55 MCH 31.9 pg (27.0-31.0) H 01/20/18 05:55 MCHC 35.3 g/dL (33.0-37.0) 01/20/18 05:55 RDW 12.9 % (11.5-14.5) 01/20/18 05:55 Plt Count 161 K/uL (130-400) 01/20/18 05:55 MPV 8.0 fl (7.2-11.7) 01/19/18 05:45 Neut % (Auto) 58.9 % (50.0-75.0) 01/19/18 05:45 Lymph % (Auto) 25.6 % (20.0-40.0) 01/19/18 05:45 [place] % (Auto) 10.6 % (0.0-10.0) H 01/19/18 05:45 Eos % (Auto) 4.4 % (0.0-4.0) H 01/19/18 05:45 Baso % (Auto) 0.5 % (0.0-2.0) 01/19/18 05:45 Neut # (Auto) 4.0 K/uL (1.8-7.0) 01/19/18 05:45 Lymph # (Auto) 1.7 K/uL (1.0-4.3) 01/19/18 05:45 [place] # (Auto) 0.7 K/uL (0.0-0.8) 01/19/18 05:45 Eos # (Auto) 0.3 K/uL (0.0-0.7) 01/19/18 05:45 Baso # (Auto) 0.0 K/uL (0.0-0.2) 01/19/18 05:45 pO2 47 mm/Hg (30-55) 01/17/18 17:39 VBG pH 7.43 (7.32-7.43) 01/17/18 17:39 VBG pCO2 43 mmHg (40-60) 01/17/18 17:39 VBG HCO3 27.4 mmol/L 01/17/18 17:39 VBG Total CO2 29.8 mmol/L (22-28) H 01/17/18 17:39 VBG O2 Sat (Calc) 88.2 % (40-65) H 01/17/18 17:39 VBG Base Excess 3.7 mmol/L (0.0-2.0) H 01/17/18 17:39 VBG Potassium 4.2 mmol/L (3.6-5.2) 01/17/18 17:39 Sodium 140.0 mmol/L (132-148) 01/17/18 17:39 Chloride 104.0 mmol/L (98-107) 01/17/18 17:39 Glucose 113 mg/dL (75-110) H 01/17/18 17:39 Lactate 2.0 mmol/L (0.7-2.1) 01/17/18 17:39 FiO2 21.0 % 01/17/18 17:39 Sodium 142 mmol/l (132-148) 01/20/18 05:55 Potassium 3.6 MMOL/L (3.6-5.0) 01/20/18 05:55 Chloride 101 mmol/L (98-107) 01/20/18 05:55 Carbon Dioxide 30 mmol/L (22-30) 01/20/18 05:55 Anion Gap 15 (10-20) 01/20/18 05:55 BUN 8 mg/dl (9-20) L 01/20/18 05:55 Creatinine 0.8 mg/dl (0.8-1.5) 01/20/18 05:55 Est GFR ( Amer) > 60 01/20/18 05:55 Est GFR (Non-Af Amer) > 60 01/20/18 05:55 Random Glucose 114 mg/dL (75-110) H 01/20/18 05:55 Hemoglobin A1c 6.0 % (4.2-6.5) 01/18/18 10:11 Calcium 9.0 mg/dL (8.4-10.2) 01/20/18 05:55 Total Bilirubin 1.4 mg/dl (0.2-1.3) H 01/20/18 05:55 AST 78 U/L (17-59) H 01/20/18 05:55 ALT 96 U/L (21-72) H 01/20/18 05:55 Alkaline Phosphatase 60 U/L (38-126) 01/20/18 05:55 Total Protein 7.2 G/DL (6.3-8.2) 01/20/18 05:55 Albumin 3.9 g/dL (3.5-5.0) 01/20/18 05:55 Globulin 3.4 gm/dL (2.2-3.9) 01/20/18 05:55 Albumin/Globulin Ratio 1.1 (1.0-2.1) 01/20/18 05:55 Triglycerides 179 mg/DL (0-149) H 01/18/18 10:11 Cholesterol 188 mg/dL (0-199) 01/18/18 10:11 LDL Cholesterol Direct 118 mg/dL (0-129) 01/18/18 10:11 HDL Cholesterol 36 MG/DL (30-70) 01/18/18 10:11 Lipase 130 U/L (23-300) 01/17/18 13:50 TSH 3rd Generation 3.28 mIU/ML (0.46-4.68) 01/18/18 10:11 Venous Blood Potassium 4.2 mmol/L (3.6-5.2) 01/17/18 17:39 - Hospital Course Hospital Course: 42 y/o man w/ pmh of HTN, gallstone, NIDDM2, and chronic back pain is admitted for acute cholecystitis. Cholecystitis found clinically and correlated w/ U/S abdomen findings. Patient Seen by general surgery. Not surgical intervention to be done while admitted but to be considered as out-patient. Patient had initial blood culture grow gram positive cocci, repeat blood culture showed no growth. Patient had HIDA scan done while admitted which showed no cystic or common duct obstruction. The patient denies abdominal pain, nausea, or vomiting. Patient reports regular bowel movement. Patient denies headaches, chest pain, SOB, or fever. The patient has been seen, examined, and deemed medically fit for discharge home. The patient is discharged w/ ciprofloxacin 500 mg PO Q12h for 7 days, metronidazole 500 mg PO Q8h for 7 days, flexeril, lidocaine patch, protonix 40 mg PO daily, and valsartan 160 mg PO daily. The patient is to follow up w/ Dr. Bennett and general surgery in 1-2 weeks. Discharge Exam - Head Exam Head Exam: ATRAUMATIC, NORMAL INSPECTION - Eye Exam Eye Exam: Normal appearance - ENT Exam ENT Exam: Mucous Membranes Moist - Neck Exam Neck exam: Full Rom - Respiratory Exam Respiratory Exam: Clear to PA & Lateral. absent: Accessory Muscle Use, Decreased Breath Sounds, Rales, Rhonchi, Wheezes, Respiratory Distress - Cardiovascular Exam Cardiovascular Exam: REGULAR RHYTHM. absent: Tachycardia - GI/Abdominal Exam GI & Abdominal Exam: Normal Bowel Sounds, Soft. absent: Distended, Tenderness - Extremities Exam Extremities exam: normal inspection - Neurological Exam Neurological exam: Alert, Normal Gait, Oriented x3 - Skin Skin Exam: Dry, Intact, Normal Color, Warm Discharge Plan - Discharge Medications Prescriptions: Ciprofloxacin [Cipro] 500 mg PO Q12 7 Days #14 tab Cyclobenzaprine [Cyclobenzaprine HCl] 10 mg PO HS #30 tab Lactobacillus Acidophilus [Bacid Acidophilus] 1 cap PO BID #22 cap Lidocaine 5% [Lidoderm] 1 ea TD DAILY #30 patch Metronidazole [Flagyl] 500 mg PO Q8 7 Days #21 tablet Pantoprazole Sodium [Protonix] 40 mg PO DAILY #30 ect Valsartan [Diovan] 160 mg PO DAILY #30 tablet - Follow Up Plan Condition: FAIR Disposition: HOME/ ROUTINE Instructions: Ciprofloxacin (Systemic), Lidocaine (Topical), Metronidazole ( Systemic), Gallstones (DC), Cyclobenzaprine, Pantoprazole, Valsartan, Diabetes and Diet Additional Instructions: follow up with primary MD 1 week Referrals: Araceli Szymanski MD [Staff Provider] - Sajan Bennett MD [Family Provider] -
== END 2018-01-20 15:50 | disposition home or self-care (01) | DRG 446 ==
LOC: H.ER 13:28 → H.ERHOLD 16:26 → H.MEDSURG1 21:18
PROVIDERS: ADMIT Family Medicine; ATTEND Family Medicine
DX: K80.00 Calculus of gallbladder with acute cholecystitis without obstruction (principal); G89.29 Other chronic pain; K52.9 Noninfective gastroenteritis and colitis, unspecified; E11.9 Type 2 diabetes mellitus without complications; I10 Essential (primary) hypertension; E66.9 Obesity, unspecified; Z68.33 Body mass index [BMI] 33.0-33.9, adult; F41.9 Anxiety disorder, unspecified; F17.210 Nicotine dependence, cigarettes, uncomplicated; Z79.84 Long term (current) use of oral hypoglycemic drugs; Z90.49 Acquired absence of other specified parts of digestive tract; Z98.1 Arthrodesis status

== ENCOUNTER 2018-01-22 14:38 | Emergency (ER) | payer MEDICARE ==
[2018-01-22 14:38] VITALS: BMI 33.5
[2018-01-22] MEDS ORDERED: diaZEpam 10 mg/2 ml Inj IVP ONE (15:14)
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
[2018-01-22 15:32] LABS: BASO % 0.5 % (0.0-2.0); EOS # 0.3 K/uL (0.0-0.7); EOS % 3.6 % (0.0-4.0); HEMOGLOBIN 16.3 g/dL (12.0-18.0); LYMPH # 1.7 K/uL (1.0-4.3); LYMPH % 20.1 % (20.0-40.0); MEAN CELL VOLUME 91.6 fl (80.0-94.0); MEAN CORPUSCULAR HEMOGLOBIN 31.4 pg (27.0-31.0); MEAN CORPUSCULAR HGB CONC 34.3 g/dL (33.0-37.0); MEAN PLATELET VOLUME 8.2 fl (7.2-11.7); MONO # 0.9 K/uL (0.0-0.8); MONO % 11.1 % (0.0-10.0); NEUT # 5.4 K/uL (1.8-7.0); NEUT % 64.7 % (50.0-75.0); NRBC % 0.1 % (0.0-0.0); RBC 5.17 Mil/uL (4.40-5.90); RED CELL DISTRIBUTION WIDTH 13.1 % (11.5-14.5); WHITE BLOOD COUNT 8.3 K/uL (4.8-10.8)
[2018-01-22 16:12] LABS: ALB/GLOB RATIO 1.1 (1.0-2.1); ALBUMIN 4.4 g/dL (3.5-5.0); ALT/SGPT 91 U/L (21-72); AST/SGOT 76 U/L (17-59); BLOOD UREA NITROGEN 21 mg/dl (9-20); CALCIUM 9.1 mg/dL (8.4-10.2); GFR AFRICAN-AMERICAN > 60; GFR NON-AFRICAN AMERICAN > 60; LIPASE 138 U/L (23-300)
--- NOTE | 2018-01-22 16:12 | CT ---
PROCEDURE: CT Abdomen and Pelvis without intravenous contrast HISTORY: RUQ pain right flank pain COMPARISON: 01/19/2018 hepatobiliary scan 01/17/2018 abdominal ultrasound. Summary of findings on the comparison examination: Cholelithiasis with borderline gallbladder wall thickening and positive sonographic Liu's sign TECHNIQUE: Unenhanced study. Neither oral nor intravenous contrast administered. Radiation dose: Total exam DLP = 1062.44 mGy-cm.This CT exam was performed using one or more of the following dose reduction techniques: Automated exposure control, adjustment of the mA and/or kV according to patient size, and/or use of iterative reconstruction technique. FINDINGS: LOWER THORAX: Unremarkable. LIVER: Hepatomegaly. Hepatic steatosis. No focal masses. No intrahepatic bile duct dilatation or perihepatic ascites. GALLBLADDER AND BILE DUCTS: Cholelithiasis without CT evidence of acute cholecystitis. PANCREAS: Unremarkable. No gross lesion or ductal dilatation. SPLEEN: Top-normal spleen orthogonal measurements 5.9 x 13.2 cm ADRENALS: Unremarkable. No mass. KIDNEYS AND URETERS: Unremarkable. No hydronephrosis. No solid mass. VASCULATURE: Unremarkable. No aortic aneurysm. BOWEL: Constipation without fecal impaction or obstruction. Diverticulosis without an acute inflammatory component or other associated pathologic process. APPENDIX: No abnormalities to suggest acute appendicitis. No right lower quadrant inflammatory processes identified. PERITONEUM: Unremarkable. No free fluid. No free air. LYMPH NODES: Unremarkable. No enlarged lymph nodes. BLADDER: Unremarkable. REPRODUCTIVE: Unremarkable. BONES: No acute fracture. OTHER FINDINGS: None. IMPRESSION: Cholelithiasis without CT manifestations of acute cholecystitis. Hepatosplenomegaly. Unremarkable kidneys ureters and urinary bladder.
--- NOTE | 2018-01-22 17:11 | US ---
HISTORY: RUQ pain hx of janet COMPARISON: 01/17/2018 TECHNIQUE: Sonographic evaluation of the right upper quadrant of the abdomen. FINDINGS: LIVER: Measures 16.0 cm in length. Hepatopedal blood flow. Fatty infiltration manifest ultrasonographically as increased echogenicity of the liver parenchyma. No mass. No intrahepatic bile duct dilatation. GALLBLADDER: Contracted gallbladder. Cholelithiasis. Negative study for gallbladder wall thickening, pericholecystic fluid, sonographic Liu's sign. COMMON BILE DUCT: Measures 3.9 mm. No stones. No dilatation. PANCREAS: Unremarkable as visualized. No mass. No ductal dilatation. RIGHT KIDNEY: Measures 5.4 x 11.2 cm in length. Normal echogenicity. No calculus, mass, or hydronephrosis. AORTA: No aneurysmal dilatation. IVC: Unremarkable. OTHER FINDINGS: None . IMPRESSION: Cholelithiasis. No sonographic evidence of acute cholecystitis. No significant interval change compared to the prior examination(s).
[2018-01-22 17:35] VITALS: RESP 19
[2018-01-22 18:46] VITALS: BP 126/78; PULSE 78; TEMP 96.6; O2SAT 98
--- NOTE | 2018-01-25 11:43 | CARD ---
APPROVED REPORT EKG Measurement Heart [id number] ND 122P19 [id number] <Conclusion> Normal sinus rhythm Right bundle branch block Cannot rule out Inferior infarct, age undetermined Abnormal ECG
== END 2018-01-22 18:46 | disposition home or self-care (01) ==
LOC: H.ER 14:38
DX: R10.11 Right upper quadrant pain (principal); E11.9 Type 2 diabetes mellitus without complications; I10 Essential (primary) hypertension
CPT/HCPCS: 74176; 76705; 80053; 83690; 85025; 96374; 99283; J1885; J2060

== ENCOUNTER 2018-05-23 13:04 | Emergency (ER) | payer MEDICARE ==
[2018-05-23 13:05] VITALS: BMI 33.5
[2018-05-23 13:08] VITALS: TEMP 97.9
[2018-05-23] MEDS ORDERED: Sodium Chloride 0.9% 1,000 ML IV STA ×2 (13:41→14:47)
[2018-05-23 14:02] LABS: BASO # 0.1 K/uL (0.0-0.2); BASO % 0.6 % (0.0-2.0); EOS # 0.1 K/uL (0.0-0.7); HEMOGLOBIN 18.8 g/dL (12.0-18.0); LYMPH # 2.2 K/uL (1.0-4.3); LYMPH % 22.3 % (20.0-40.0); MEAN CELL VOLUME 90.7 fl (80.0-94.0); MEAN CORPUSCULAR HEMOGLOBIN 31.5 pg (27.0-31.0); MEAN CORPUSCULAR HGB CONC 34.7 g/dL (33.0-37.0); MEAN PLATELET VOLUME 9.3 fl (7.2-11.7); MONO % 10.5 % (0.0-10.0); NEUT # 6.4 K/uL (1.8-7.0); NEUT % 65.6 % (50.0-75.0); NRBC % 0.5 % (0.0-0.0); RBC 5.99 Mil/uL (4.40-5.90); RED CELL DISTRIBUTION WIDTH 12.6 % (11.5-14.5); WHITE BLOOD COUNT 9.8 K/uL (4.8-10.8)
[2018-05-23 14:12] LABS: ALB/GLOB RATIO 1.1 (1.0-2.1); ALBUMIN 5.1 g/dL (3.5-5.0); ALT/SGPT 70 U/L (21-72); AST/SGOT 61 U/L (17-59); BLOOD UREA NITROGEN 17 mg/dl (9-20); CALCIUM 10.2 mg/dL (8.4-10.2); GFR NON-AFRICAN AMERICAN 56; LIPASE 96 U/L (23-300)
[2018-05-23 14:49] LABS: SQUAMOUS EPITHIAL 2 /hpf (0-5); URINE BILIRUBIN NEGATIVE (NEGATIVE); URINE BLOOD NEGATIVE (NEGATIVE); URINE CLARITY CLOUDY (Clear); URINE COLOR AMBER (YELLOW); URINE GLUCOSE (UA) NEG (Normal); URINE HYALINE CAST >20 /hpf (0-2); URINE LEUKOCYTE ESTERASE NEG Leu/uL (Negative); URINE PROTEIN 30 mg/dL (NEGATIVE); URINE UROBILINOGEN 0.2-1.0 mg/dL (0.2-1.0)
[2018-05-23 15:11] LABS: ABG ALLEN TEST YES; ARTERIAL BLOOD GAS HCO3 18.8 mmol/L (21-28); ARTERIAL BLOOD GAS HEMOGLOBIN 17.7 g/dL (11.7-17.4); ARTERIAL BLOOD GAS O2 CAPACITY 23.9 mL/dL (16-24); ARTERIAL BLOOD GAS O2 CONTENT 23.8 ML/dL (15-23); ARTERIAL BLOOD GAS O2 SAT 99.6 % (95-98); ARTERIAL BLOOD GAS PCO2 36 mm/Hg (35-45); ARTERIAL BLOOD GAS PO2 91 mm/Hg (80-100); ARTERIAL BLOOD GAS TCO2 18.8 mmol/L (22-28)
--- NOTE | 2018-05-23 15:11 | ED PDOC ---
HPI: Abdomen Time Seen by Provider: 05/23/18 13:19 Chief Complaint (Nursing): Abdominal Pain Chief Complaint (Provider): Diarrhea with Abdominal Pain and Body Cramps History Per: Patient History/Exam Limitations: no limitations Onset/Duration Of Symptoms: Hrs Current Symptoms Are (Timing): Still Present Quality Of Discomfort: Cramping Additional Complaint(s): 42 year old male presents to the ER for an evaluation of diarrhea with body cramps and abdominal cramps. Patient states yesterday at 6pm he took his gallstone cleanse which consisted of epsom salt, water, walnut and olive oil. At 6:15pm he developed diarrhea with body cramps and abdominal cramps. He reports he had 20 to 30 episodes of Diarrhea, all non-bloody. Denies fever, vomiting, nausea, chest pain or shortness of breath. Of note: Back in January patient was diagnosed with gallstone but denied any surgery. 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 PMD: Sajan Bennett Past Medical History Reviewed: Historical Data, Nursing Documentation, Vital Signs Vital Signs: Last Vital Signs Temp 97.9 F 05/23/18 13:06 Pulse 81 05/23/18 15:04 Resp 20 05/23/18 15:04 BP 129/74 05/23/18 15:04 Pulse Ox 100 05/23/18 15:04 - Medical History PMH: Anxiety, Back Problems, Diabetes, Gall Bladder Disease (gallstones), HTN Denies: Arthritis, CHF, COPD, Hepatitis, HIV, Hypercholesterolemia, Hypothyroidism, Chronic Kidney Disease, Rheumatoid Arthritis, Seizures, Sexually Transmitted Disease - Surgical History Surgical History: Appendectomy, Back Surgery (neck fusion x 2 last time a year ago) - Family History Family History: States: Unknown Family Hx - Social History Current smoker - smoking cessation education provided: No Alcohol: None Drugs: Cannabis - Immunization History Hx Tetanus Toxoid Vaccination: No Hx Influenza Vaccination: Yes Hx Pneumococcal Vaccination: No - Home Medications Home Medications: Ambulatory Orders Medication Instructions Recorded Cyclobenzaprine [Cyclobenzaprine 10 mg PO HS #30 tab 01/20/18 HCl] Metronidazole [Flagyl] 500 mg PO Q8 7 Days #21 tablet 01/20/18 Pantoprazole Sodium [Protonix] 40 mg PO DAILY #30 ect 01/20/18 RX: Ciprofloxacin [Cipro] 500 mg PO Q12 7 Days #14 tab 01/20/18 RX: Lactobacillus Acidophilus 1 cap PO BID #22 cap 01/20/18 [Bacid Acidophilus] RX: Valsartan [Diovan] 160 mg PO DAILY #30 tablet 01/20/18 - Allergies Allergies/Adverse Reactions: Allergies Allergy/AdvReac Type Severity Reaction Status Date / Time No Known Allergies Allergy Verified 01/17/18 13:45 Review of Systems ROS Statement: Except As Marked, All Systems Reviewed And Found Negative Constitutional: Positive for: Other (body cramps). Negative for: Fever Cardiovascular: Negative for: Chest Pain Respiratory: Negative for: Shortness of Breath Gastrointestinal: Positive for: Abdominal Pain, Diarrhea (non-bloody). Negative for: Nausea, Vomiting Psych: Negative for: Suicidal ideation (homicidal ideation) Physical Exam - Reviewed Nursing Documentation Reviewed: Yes Vital Signs Reviewed: Yes - Physical Exam Appears: Positive for: Well, Non-toxic, No Acute Distress Head Exam: Positive for: ATRAUMATIC, NORMAL INSPECTION, NORMOCEPHALIC Skin: Positive for: Normal Color, Warm, Dry Eye Exam: Positive for: EOMI, Normal appearance, PERRL ENT: Positive for: Normal ENT Inspection Neck: Positive for: Normal, Painless ROM, Supple. Negative for: Decreased ROM Cardiovascular/Chest: Positive for: Regular Rate, Rhythm. Negative for: Murmur Respiratory: Positive for: Normal Breath Sounds. Negative for: Decreased Breath Sounds, Wheezing, Respiratory Distress Gastrointestinal/Abdominal: Positive for: Normal Exam, Soft. Negative for: Tenderness Back: Positive for: Normal Inspection. Negative for: L CVA Tenderness, R CVA Tenderness Extremity: Positive for: Normal ROM. Negative for: Tenderness, Pedal Edema, Deformity Neurologic/Psych: Positive for: Alert, Oriented (x3). Negative for: Motor/Sensory Deficits - Laboratory Results Result Diagrams: 05/23/18 13:55 05/23/18 16:12 - ECG O2 Sat by Pulse Oximetry: 100 (RA) Pulse Ox Interpretation: Normal Medical Decision Making Medical Decision Making: Time: 1341 Initial Plan: --ABG [Atrial Blood Gas] --EKG --CMP --CPK [Creatine Phosphokinase] --Lipase --Magnesium --Phosphorous --CBC w/ Differential --Normal Saline 1000 mls/hr --Stool Culture --Cattle Manager --IV Insertion --Urinalysis --Abdomen Limited (BG Included) US --Reevaluation Time: 1537 Date of service: 05/23/2018 HISTORY: abd pain, hx of gallstones COMPARISON: Comparison is made with the previous study dated 01/22/[address] dated 01/22/2018 TECHNIQUE: Sonographic evaluation of the right upper quadrant of the abdomen. FINDINGS: LIVER: Measures 14.3 cm in length. Moderate increased echogenicity of the liver parenchyma. No mass. No intrahepatic bile duct dilatation. GALLBLADDER: Gallstone is noted. No definite ultrasound evidence of acute cholecystitis. The gallbladder wall thickness is 2 millimeter. COMMON BILE DUCT: Measures 5 mm. No stones. No dilatation. PANCREAS: The pancreas is poorly visualized due to overlying bowel gas. RIGHT KIDNEY: Measures 10.4 x 4.7 x 5.9 cm in length. Normal echogenicity. No calculus, mass, or hydronephrosis. AORTA: No aneurysmal dilatation. IVC: Unremarkable. OTHER FINDINGS: None . IMPRESSION: Gallstone without definite ultrasound evidence of acute cholecystitis. Echogenic liver likely due to hepatic steatosis. Case and labs d/w Dr. Archer who recommends repeat CMP. K 5.4. Repeat EKG ordered. EKG shows SR with RBBB without ST-T wave changes which is unchanged from today. EKG reviewed from 01/2018 which is the same as today's EKG. On re-evaluation, pt. is happy and laughing. Reports complete relief of symptoms. No diarrhea while in ED. Denies abdominal pain, bodyaches. States he is "back to normal." Tolerating PO fluids in ED. Informed of all lab results and advised to stop using gallbladder cleanse. -- Scribe Attestation: Documented by Aggie Saravia, acting as a scribe for Tanmay Beck PA-C Provider Scribe Attestation: All medical record entries made by the Scribe were at my direction and personally dictated by me. I have reviewed the chart and agree that the record accurately reflects my personal performance of the history, physical exam, medical decision making, and the department course for this patient. I have also personally directed, reviewed, and agree with the discharge instructions and disposition Disposition - Clinical Impression Clinical Impression: Diarrhea - Patient ED Disposition Is Patient to be Admitted: No - Disposition Referrals: Sajan Bennett MD [Family Provider] - Disposition: Routine/Home Disposition Time: 16:40 Condition: IMPROVED Additional Instructions: CHRISSY SOTELO, thank you for letting us take care of you today. Your provider was Dyan Archer MD and you were treated for BODY:CRAMPING. The emergency medical care you received today was directed at your acute symptoms. If you were prescribed any medication, please fill it and take as directed. It may take several days for your symptoms to resolve. Return to the Emergency Department if your symptoms worsen, do not improve, or if you have any other problems. Please contact your doctor or call one of the physicians/clinics you have been referred to that are listed on the Patient Visit Information form that is included in your discharge packet. Bring any paperwork you were given at discharge with you along with any medications you are taking to your follow up visit. Our treatment cannot replace ongoing medical care by a primary care provider outside of the emergency department. Thank you for allowing the [facility] team to be part of your care today. If you had an X-Ray or CT scan: A Radiologist will review the ED reading if any change in treatment is needed we will contact you. If you had a blood, urine, or wound culture: It will take several days for the results, if any change in treatment is needed we will contact you. If you had an STI test: It will take 48 hours for the results. Please call after 1 week if you have not heard back. Instructions: Diarrhea in Adolescents and Adults Forms: Gtxh (Urdu) Print Language: HUNGARIAN
--- NOTE | 2018-05-23 15:43 | US ---
Date of service: 05/23/2018 HISTORY: abd pain, hx of gallstones COMPARISON: Comparison is made with the previous study dated 01/22/[address] dated 01/22/2018 TECHNIQUE: Sonographic evaluation of the right upper quadrant of the abdomen. FINDINGS: LIVER: Measures 14.3 cm in length. Moderate increased echogenicity of the liver parenchyma. No mass. No intrahepatic bile duct dilatation. GALLBLADDER: Gallstone is noted. No definite ultrasound evidence of acute cholecystitis. The gallbladder wall thickness is 2 millimeter. COMMON BILE DUCT: Measures 5 mm. No stones. No dilatation. PANCREAS: The pancreas is poorly visualized due to overlying bowel gas. RIGHT KIDNEY: Measures 10.4 x 4.7 x 5.9 cm in length. Normal echogenicity. No calculus, mass, or hydronephrosis. AORTA: No aneurysmal dilatation. IVC: Unremarkable. OTHER FINDINGS: None . IMPRESSION: Gallstone without definite ultrasound evidence of acute cholecystitis. Echogenic liver likely due to hepatic steatosis.
[2018-05-23 16:28] LABS: ALB/GLOB RATIO 1.1 (1.0-2.1); ALBUMIN 4.1 g/dL (3.5-5.0); ALT/SGPT 53 U/L (21-72); AST/SGOT 36 U/L (17-59); BLOOD UREA NITROGEN 16 mg/dl (9-20); CALCIUM 8.8 mg/dL (8.4-10.2); GFR NON-AFRICAN AMERICAN > 60
[2018-05-23 16:36] VITALS: PULSE 80; RESP 18
[2018-05-23 17:26] VITALS: BP 124/88
[2018-05-23 17:54] VITALS: O2SAT 100
--- NOTE | 2018-05-23 23:04 | CARD ---
APPROVED REPORT Date of service: 05/23/2018 EKG Measurement Heart [id number] TN 142P13 [id number] <Conclusion> Normal sinus rhythm Right bundle branch block Abnormal ECG
--- NOTE | 2018-05-23 23:07 | CARD ---
APPROVED REPORT Date of service: 05/23/2018 EKG Measurement Heart [id number] NE 156P37 [id number] <Conclusion> Normal sinus rhythm Right bundle branch block Cannot rule out Inferior infarct, age undetermined Abnormal ECG
== END 2018-05-23 17:14 | disposition home or self-care (01) ==
LOC: H.ER 13:04
DX: R19.7 Diarrhea, unspecified (principal); E11.9 Type 2 diabetes mellitus without complications; I10 Essential (primary) hypertension; I45.10 Unspecified right bundle-branch block
CPT/HCPCS: 36600; 76705; 80053; 81003; 82550; 82803; 83690; 83735; 84100; 85025; 87045; 93005; 96360; 96361; 99285; J7030

== ENCOUNTER 2018-06-03 11:44 | Emergency (ER) | payer MEDICARE ==
[2018-06-03 11:44] VITALS: BMI 33.5
[2018-06-03 12:08] VITALS: TEMP 97; O2SAT 99
--- NOTE | 2018-06-03 13:21 | ED PDOC ---
HPI: General Adult Time Seen by Provider: 06/03/18 12:15 Chief Complaint (Nursing): Abdominal Pain Chief Complaint (Provider): Abdominal Pain History Per: Patient History/Exam Limitations: no limitations Onset/Duration Of Symptoms: Days (X 2 weeks) Current Symptoms Are (Timing): Still Present Additional Complaint(s): 42 year old male with a history of gallstones presents to the ED with a sharp pain in his right flank and upper back. Patient reports he was here 2 weeks again for dehydration after he tried a cleanse to remove gallstones using epsome salt. He believes that he excreted most of them through his stool because he saw green pieces in it. He doesn't think he got them all and is also complaining of nausea. He denies fever, chills and vomiting. PMD: Dr. Bennett Past Medical History Reviewed: Historical Data, Nursing Documentation, Vital Signs Vital Signs: Last Vital Signs Temp 97.0 F L 06/03/18 12:05 Pulse 80 06/03/18 12:05 Resp 16 06/03/18 12:05 BP 147/93 H 06/03/18 12:05 Pulse Ox 99 06/03/18 12:05 - Medical History PMH: Anxiety, Back Problems, Diabetes, Gall Bladder Disease (gallstones), HTN Denies: Arthritis, CHF, COPD, Hepatitis, HIV, Hypercholesterolemia, Hypothyroidism, Chronic Kidney Disease, Rheumatoid Arthritis, Seizures, Sexually Transmitted Disease - Surgical History Surgical History: Appendectomy, Back Surgery (neck fusion x 2 last time a year ago) - Family History Family History: States: Unknown Family Hx - Immunization History Hx Tetanus Toxoid Vaccination: No Hx Influenza Vaccination: Yes Hx Pneumococcal Vaccination: No - Home Medications Home Medications: Ambulatory Orders Medication Instructions Recorded Ciprofloxacin [Cipro] 500 mg PO Q12 7 Days #14 tab 01/20/18 Cyclobenzaprine [Cyclobenzaprine 10 mg PO HS #30 tab 01/20/18 HCl] Lactobacillus Acidophilus [Bacid 1 cap PO BID #22 cap 01/20/18 Acidophilus] Metronidazole [Flagyl] 500 mg PO Q8 7 Days #21 tablet 01/20/18 Pantoprazole Sodium [Protonix] 40 mg PO DAILY #30 ect 01/20/18 Valsartan [Diovan] 160 mg PO DAILY #30 tablet 01/20/18 - Allergies Allergies/Adverse Reactions: Allergies Allergy/AdvReac Type Severity Reaction Status Date / Time No Known Allergies Allergy Verified 06/03/18 12:05 Review of Systems ROS Statement: Except As Marked, All Systems Reviewed And Found Negative Gastrointestinal: Positive for: Nausea. Negative for: Vomiting, Diarrhea Musculoskeletal: Positive for: Back Pain (right flank pain) Physical Exam - Reviewed Nursing Documentation Reviewed: Yes Vital Signs Reviewed: Yes - Physical Exam Appears: Positive for: Non-toxic, No Acute Distress Head Exam: Positive for: ATRAUMATIC, NORMAL INSPECTION, NORMOCEPHALIC Skin: Positive for: Normal Color, Warm, Dry Eye Exam: Positive for: EOMI, Normal appearance, PERRL Neck: Positive for: Normal, Painless ROM, Supple Cardiovascular/Chest: Positive for: Regular Rate, Rhythm. Negative for: Murmur Respiratory: Positive for: Normal Breath Sounds. Negative for: Respiratory Distress Gastrointestinal/Abdominal: Positive for: Normal Exam, Soft. Negative for: Tenderness, Distended, Guarding Back: Positive for: Normal Inspection. Negative for: L CVA Tenderness, R CVA Tenderness Extremity: Positive for: Normal ROM (x 4). Negative for: Deformity, Swelling Neurologic/Psych: Positive for: Alert, Oriented (x 3). Negative for: Motor/Sensory Deficits - ECG O2 Sat by Pulse Oximetry: 99 (RA) Pulse Ox Interpretation: Normal Medical Decision Making Medical Decision Makin:59 Impression: right flank pain and nausea Initial Plan: --CMP --CBC --Lipase --Toradol 30 mg PO --Gallbladder US 15:00 --Patient signed out to Dr. Olmedo pending US gallbladder and labs. Scribe Attestation: Documented by Evelia Samayoa acting as a scribe for Demario Briones MD Provider Scribe Attestation: All medical record entries made by the Scribe were at my direction and personally dictated by me. I have reviewed the chart and agree that the record accurately reflects my personal performance of the history, physical exam, medical decision making, and the department course for this patient. I have also personally directed, reviewed, and agree with the discharge instructions and disposition. Disposition - Patient ED Disposition Is Patient to be Admitted: Transfer of Care - Disposition Disposition: Transfer of Care Disposition Time: 15:00 Forms: [employer] ([place]ian) Patient Signed Over To: Adry Olmedo
[2018-06-03] MEDS ORDERED: Sodium Chloride 0.9% 1,000 ML IV STA (14:07)
--- NOTE | 2018-06-03 15:14 | ED PDOC ---
- Laboratory Results Result Diagrams: 06/03/18 17:50 06/03/18 17:50 - ECG O2 Sat by Pulse Oximetry: 99 (RA) Pulse Ox Interpretation: Normal Medical Decision Making Medical Decision Makin:00 --Patient signed out to me by Dr. Briones pending ED workup, reevaluation and final disposition. 15:25 Gallbladder US FINDINGS: LIVER: Measures 14.3 cm in length. Patent portal vein. Portal venous flow: Hepatopetal. Unremarkable echogenicity of the liver parenchyma. No mass. No intrahepatic bile duct dilatation. GALLBLADDER: Cholelithiasis. Negative study for gallbladder wall thickening, pericholecystic fluid, sonographic Liu's sign. COMMON BILE DUCT: Measures 0.5 mm. No stones. No dilatation. PANCREAS: Unremarkable as visualized. No mass. No ductal dilatation. RIGHT KIDNEY: Measures 6.0 x 6.3 x 11.2 cm in length. Normal echogenicity. No calculus, mass, or hydronephrosis. AORTA: No aneurysmal dilatation. IVC: Unremarkable. OTHER FINDINGS: None . IMPRESSION: Cholelithiasis. No sonographic evidence of acute cholecystitis. No significant interval change compared to the prior examination(s). 19:20 Labs reviewed, within normal limits. On reassessment, patient states he is still pain free. Plan of care discussed with patient and agreeable to be discharged home with follow up at surgery clinic. Scribe Attestation: Documented by Evelia Samayoa acting as a scribe for Adry Olmedo MD Provider Scribe Attestation: All medical record entries made by the Scribe were at my direction and personally dictated by me. I have reviewed the chart and agree that the record accurately reflects my personal performance of the history, physical exam, medical decision making, and the department course for this patient. I have also personally directed, reviewed, and agree with the discharge instructions and disposition. Disposition - POA Present On Arrival: None - Disposition Disposition: Routine/Home Disposition Time: 19:21 Condition: STABLE Forms: [employer] (Bhutanese)
--- NOTE | 2018-06-03 15:30 | US ---
Date of service: 06/03/2018 HISTORY: ruq abd pain COMPARISON: 05/23/2018. TECHNIQUE: Sonographic evaluation of the right upper quadrant of the abdomen. FINDINGS: LIVER: Measures 14.3 cm in length. Patent portal vein. Portal venous flow: Hepatopetal. Unremarkable echogenicity of the liver parenchyma. No mass. No intrahepatic bile duct dilatation. GALLBLADDER: Cholelithiasis. Negative study for gallbladder wall thickening, pericholecystic fluid, sonographic Liu's sign. COMMON BILE DUCT: Measures 0.5 mm. No stones. No dilatation. PANCREAS: Unremarkable as visualized. No mass. No ductal dilatation. RIGHT KIDNEY: Measures 6.0 x 6.3 x 11.2 cm in length. Normal echogenicity. No calculus, mass, or hydronephrosis. AORTA: No aneurysmal dilatation. IVC: Unremarkable. OTHER FINDINGS: None . IMPRESSION: Cholelithiasis. No sonographic evidence of acute cholecystitis. No significant interval change compared to the prior examination(s).
[2018-06-03 18:00] LABS: BASO % 0.6 % (0.0-2.0); EOS # 0.3 K/uL (0.0-0.7); EOS % 4.5 % (0.0-4.0); LYMPH # 1.9 K/uL (1.0-4.3); LYMPH % 30.8 % (20.0-40.0); MEAN CELL VOLUME 91.4 fl (80.0-94.0); MEAN CORPUSCULAR HEMOGLOBIN 30.8 pg (27.0-31.0); MEAN CORPUSCULAR HGB CONC 33.7 g/dL (33.0-37.0); MEAN PLATELET VOLUME 8.6 fl (7.2-11.7); MONO # 0.5 K/uL (0.0-0.8); MONO % 8.1 % (0.0-10.0); NEUT # 3.4 K/uL (1.8-7.0); RBC 5.19 Mil/uL (4.40-5.90); RED CELL DISTRIBUTION WIDTH 12.9 % (11.5-14.5)
[2018-06-03 18:45] LABS: ALB/GLOB RATIO 1.2 (1.0-2.1); ALBUMIN 3.9 g/dL (3.5-5.0); ALT/SGPT 44 U/L (21-72); AST/SGOT 31 U/L (17-59); BLOOD UREA NITROGEN 10 mg/dl (9-20); GFR NON-AFRICAN AMERICAN > 60; LIPASE 65 U/L (23-300)
[2018-06-03 19:45] VITALS: BP 139/82; PULSE 71; RESP 17
== END 2018-06-03 19:49 | disposition home or self-care (01) ==
LOC: H.ER 11:44
DX: K80.20 Calculus of gallbladder without cholecystitis without obstruction (principal); E11.9 Type 2 diabetes mellitus without complications; I10 Essential (primary) hypertension
CPT/HCPCS: 76705; 80053; 83690; 85025; 96374; 99283; J1885

== ENCOUNTER 2018-08-02 17:46 | Observation (INO) | payer MEDICARE ==
[2018-08-02 17:46] VITALS: BMI 33.5
[2018-08-02] MEDS ORDERED: Sodium Chloride 0.9% 1,000 ML IV SCH (18:00)
--- NOTE | 2018-08-02 18:05 | ED PDOC ---
HPI:STROKE - Time Time: 18:02 - Historian Historian: Patient - Chief Complaint Chief Complaint: Numbness (Left arm and left side of face) - Onset Date: 08/02/18 Time: 13:00 Onset: Hours (5) - Timing Timing: Currently Symptomatic - Location Locate left: Upper extremity - Radiation Radiation: None - Severity of pain Maximum severity:: Mild Pain Scale:: 0 Severity Current: Mild Pain Scale:: 0 - TPA Positive for Contraindication: Yes - Notes: Notes:: Left facial numbness left arm numbness x 5 hrs started 1 PM after using cocaine earlier today. Denies headache or weakness. Assoc with mild chest pain. NIHSS Stroke Scale - Date/Time Evaluation Performed Date Performed: 08/02/18 Time Performed: 18:05 - How Severe is the Stroke Level of Consciousness: 0=Alert LOC to Questions: 0=Both comments correct LOC to commands: 0=Obeys both correctly Best Gaze: 0=Normal Visual: 0=No visual loss Facial: 0=Normal Motor Arm - Left: 0=No drift Motor Arm - Right: 0=No drift Motor Leg - Left: 0=No drift Motor Leg - Right: 0=No drift Limb Ataxia: 0=Absent Sensory: 1=Mild to moderate loss Best Language: 0=No aphasia Dysarthia: 0=Normal articulation Extinction & Inattention (Neglect): 0=Normal, no object Score: 1 rTPA Inclusion/Exclusion - Refusal of Treatment Patient Refused Treatment: No - Inclusion Criteria for Altepase Patient is 18 years or Older: Yes The Clinical Diagnosis of Ischemic Stroke That is Causing a Potentially Disabling Neurological Deficit: Yes Time of Onset is Well Established to be Less Than 270 Minute Before Treatment Would Begin: No Risk/Benefit Discussed With Patient/Family Member Present: No Past Medical History Vital Signs: Last Vital Signs Temp 98.5 F 08/02/18 17:50 Pulse 88 08/02/18 17:50 Resp 20 08/02/18 17:50 BP 145/100 H 08/02/18 17:50 Pulse Ox 99 08/02/18 17:50 - Medical History PMH: Anxiety, Back Problems, Diabetes, Gall Bladder Disease (gallstones), HTN Denies: Arthritis, CHF, COPD, Hepatitis, HIV, Hypercholesterolemia, Hypothyroidism, Chronic Kidney Disease, Rheumatoid Arthritis, Seizures, Sexually Transmitted Disease - Surgical History Surgical History: Appendectomy, Back Surgery (neck fusion x 2 last time a year ago) - Family History Family History: States: Unknown Family Hx - Immunization History Hx Tetanus Toxoid Vaccination: No Hx Influenza Vaccination: Yes Hx Pneumococcal Vaccination: No - Home Medications Home Medications: Ambulatory Orders Medication Instructions Recorded Ciprofloxacin [Cipro] 500 mg PO Q12 7 Days #14 tab 01/20/18 Cyclobenzaprine [Cyclobenzaprine 10 mg PO HS #30 tab 01/20/18 HCl] Lactobacillus Acidophilus [Bacid 1 cap PO BID #22 cap 01/20/18 Acidophilus] Metronidazole [Flagyl] 500 mg PO Q8 7 Days #21 tablet 01/20/18 Pantoprazole Sodium [Protonix] 40 mg PO DAILY #30 ect 01/20/18 Valsartan [Diovan] 160 mg PO DAILY #30 tablet 01/20/18 - Allergies Allergies/Adverse Reactions: Allergies Allergy/AdvReac Type Severity Reaction Status Date / Time No Known Allergies Allergy Verified 06/03/18 12:05 Review of Systems ROS Statement: Except As Marked, All Systems Reviewed And Found Negative Cardiovascular: Positive for: Chest Pain Neurological: Positive for: Numbness (Left facial and left arm) Physical Exam - Reviewed Nursing Documentation Reviewed: Yes Vital Signs Reviewed: Yes - Physical Exam Appears: Positive for: Non-toxic, No Acute Distress Head Exam: Positive for: ATRAUMATIC, NORMAL INSPECTION, NORMOCEPHALIC Skin: Positive for: Normal Color, Warm, DRY Eye Exam: Positive for: EOMI, Normal appearance, PERRL ENT: Positive for: Normal ENT Inspection Neck: Positive for: Normal, Painless ROM Cardiovascular/Chest: Positive for: Regular Rate, Rhythm Respiratory: Positive for: CNT, Normal Breath Sounds Gastrointestinal/Abdominal: Positive for: Normal Exam, Soft Back: Positive for: Normal Inspection Extremity: Positive for: Normal ROM Neurologic/Psych: Positive for: Oriented, Motor/Sensory Deficits (Mild sensory decrease left side of face and left UE) - Laboratory Results Result Diagrams: 08/02/18 18:00 - ECG O2 Sat by Pulse Oximetry: 99 Disposition - Clinical Impression Clinical Impression: TIA (transient ischemic attack), Chest pain - Patient ED Disposition Is Patient to be Admitted: Yes - Disposition Disposition Time: 18:40 Condition: FAIR Forms: [employer] (Y[place]) - Pt Status Changed To: Hospital Disposition Of: Observation - POA Present On Arrival: None
--- NOTE | 2018-08-02 18:17 | CT ---
Date of service: 08/02/2018 PROCEDURE: CT HEAD WITHOUT CONTRAST. HISTORY: code stroke COMPARISON: None available. TECHNIQUE: Axial computed tomography images were obtained through the head/brain without intravenous contrast. Radiation dose: Total exam DLP = 851.1 mGy-cm. This CT exam was performed using one or more of the following dose reduction techniques: Automated exposure control, adjustment of the mA and/or kV according to patient size, and/or use of iterative reconstruction technique. FINDINGS: HEMORRHAGE: No intracranial hemorrhage. BRAIN: Normal malone-white matter differentiation and density are appreciated throughout the cerebrum and cerebellum with the brainstem appearing unremarkable as well. There is no mass effect. There is no suspicious extra-axial fluid collection and the midline brain anatomy appears diffusely unremarkable. VENTRICLES: Unremarkable. No hydrocephalus. CALVARIUM: Unremarkable. PARANASAL SINUSES: Unremarkable as visualized. No significant inflammatory changes. MASTOID AIR CELLS: Unremarkable as visualized. No inflammatory changes. OTHER FINDINGS: Focal scalp thickening/fibrosis left parietal vertex in 2 focal areas. The patient apparently has not undergone recent head trauma IMPRESSION: No acute intracranial findings with brain parenchyma appear unremarkable throughout. Follow up CT or MRI are available as clinically warranted. Incidental left parietal scalp fibrosis or sebaceous cysts Findings discussed with Dr. España with written down and read back verification 08/02/2018 6:11 p.m..
[2018-08-02 18:30] LABS: PROTHROMBIN TIME 11.3 Seconds (9.8-13.1)
[2018-08-02 18:32] LABS: PARTIAL THROMBOPLASTIN TIME 31.1 Seconds (25.6-37.1)
[2018-08-02 18:33] LABS: ALB/GLOB RATIO 1.1 (1.0-2.1); ALBUMIN 4.6 g/dL (3.5-5.0); ALT/SGPT 85 U/L (21-72); AST/SGOT 62 U/L (17-59); BLOOD UREA NITROGEN 11 mg/dl (9-20); CALCIUM 8.8 mg/dL (8.4-10.2); GFR NON-AFRICAN AMERICAN > 60; HDL CHOLESTEROL 45 MG/DL (30-70)
[2018-08-02 18:43] LABS: LDL CHOLESTEROL 102 mg/dL (0-129)
--- NOTE | 2018-08-02 18:49 | RAD ---
Date of service: 08/02/2018 HISTORY: Code Stroke COMPARISON: Portable chest 01/19/2018. FINDINGS: LUNGS: No active pulmonary disease. PLEURA: No significant pleural effusion identified, no pneumothorax apparent. CARDIOVASCULAR: No aortic atherosclerotic calcification present. Normal cardiac size. No pulmonary vascular congestion. OSSEOUS STRUCTURES: No significant abnormalities. VISUALIZED UPPER ABDOMEN: Normal. OTHER FINDINGS: Cervicothoracic spinal fusion hardware reiterated. IMPRESSION: No interval acute cardiopulmonary disease appreciated.
[2018-08-02] MEDS ORDERED: Pneumococcal 23-Valent Vaccine IM ONE (23:25)
[2018-08-03] MEDS ORDERED: Influenza Vaccine 60 mcg/0.5 mL SYR (4YR UP) IM ONE (06:00)
[2018-08-03 07:55] VITALS: RESP 20
[2018-08-03] MEDS ORDERED: NEBIVOLOL 5 MG PO SCH (09:00)
--- NOTE | 2018-08-03 10:18 | CP.PCM.CON ---
History of Present Illness - History of Present Illness History of Present Illness: 42 yr old male who is a cocaine user and did cocaine earlier today, and then had a sudden onset of left sided face and arm numbness that is still present in his arm. NIHSS is 1. There are no other findings from a neurological point of view. Mr alvarado was with his friends when he was drinking and he did cocaine, an unusual habit for him. After snorting the substance, he suddenly felt numbness and tingling in his left arm and face, and he fell before this occured. Most of these symptoms resolved by the time he arrived in the ER, and now only his left thumb is numb. NO aphasia, dysarthria, weakness or headache. He has never had any prior spells. ROS: no nausea, no vomiting, no diarrhea, no other complaints. PMH/PSH: HTN, lumbar and cervical radiculopathy. Fh/Sh:Drinks etoh occasionally. Currently unemployed due to disability. All: nkda. On exam: Normal neurological exam except for left opponens pollucis weakness limited by pain. Past Patient History - Infectious Disease Hx of Infectious Diseases: None - Past Medical History & Family History Past Medical History?: Yes - Past Social History Smoking Status: Never Smoked - CARDIAC Hx Cardiac Disorders: Yes Hx Congestive Heart Failure: No Hx Hypercholesterolemia: No Hx Hypertension: Yes - PULMONARY Hx Respiratory Disorders: No Hx Chronic Obstructive Pulmonary Disease (COPD): No - NEUROLOGICAL Hx Neurological Disorder: No Hx Seizures: No - HEENT Hx HEENT Problems: No - RENAL Hx Chronic Kidney Disease: No - ENDOCRINE/METABOLIC Hx Endocrine Disorders: No Hx Hypothyroidism: No - HEMATOLOGICAL/ONCOLOGICAL Hx Blood Disorders: No Hx Human Immunodeficiency Virus (HIV): No - INTEGUMENTARY Hx Dermatological Problems: No - MUSCULOSKELETAL/RHEUMATOLOGICAL Hx Musculoskeletal Disorders: Yes Hx Arthritis: No Hx Back Pain: Yes Hx Falls: Yes Hx Rheumatoid Arthritis: No - GASTROINTESTINAL Hx Gastrointestinal Disorders: Yes Hx Gall Bladder Disease: Yes (gallstones) - GENITOURINARY/GYNECOLOGICAL Hx Genitourinary Disorders: No Hx Sexually Transmitted Disorders: No - PSYCHIATRIC Hx Psychophysiologic Disorder: Yes Hx Anxiety: Yes Hx Substance Use: (Marijuana use) - SURGICAL HISTORY Hx Appendectomy: Yes - ANESTHESIA Hx Anesthesia: Yes Hx Anesthesia Reactions: No Hx Malignant Hyperthermia: No Has any member of the family had a problem w/ anesthesia?: No Meds Allergies/Adverse Reactions: Allergies Allergy/AdvReac Type Severity Reaction Status Date / Time No Known Allergies Allergy Verified 06/03/18 12:05 - Medications Medications: Current Medications Sodium Chloride (Sodium Chloride 0.9%) 1,000 mls @ 100 mls/hr IV .Q10H [facility] Last Admin: 08/02/18 18:17 Dose: 100 mls/hr Ibuprofen (Motrin Tab) 600 mg PO Q6 PRN PRN Reason: Pain, moderate (4-7) Last Admin: 08/02/18 23:41 Dose: 600 mg Ibuprofen (Motrin Tab) 400 mg PO Q6 PRN PRN Reason: Pain, Mild (1-3) Ibuprofen (Motrin Tab) 800 mg PO Q8 PRN PRN Reason: Pain, severe (8-10) Metoprolol Tartrate (Lopressor) 25 mg PO Q12 [facility] Last Admin: 08/03/18 09:25 Dose: 25 mg Results - Vital Signs Recent Vital Signs: Last Vital Signs Temp 97.7 F 08/03/18 07:54 Pulse 75 08/03/18 07:54 Resp 20 08/03/18 07:54 BP 152/95 H 08/03/18 07:54 Pulse Ox 96 08/03/18 07:54 - Labs Result Diagrams: 08/02/18 18:00 Labs: Laboratory Results - last 24 hr 08/02/18 08/02/18 08/02/18 17:57 18:00 18:00 PT 11.3 INR 1.0 APTT 31.1 Sodium 144 Potassium 4.5 Chloride 109 H Carbon Dioxide 20 L Anion Gap 20 BUN 11 Creatinine 0.8 Est GFR ( Amer) > 60 Est GFR (Non-Af Amer) > 60 POC Glucose (mg/dL) 175 H Random Glucose 164 H Calcium 8.8 Total Bilirubin 0.2 AST 62 H D ALT 85 H D Alkaline Phosphatase 70 Troponin I < 0.0120 Total Protein 8.7 H Albumin 4.6 Globulin 4.1 H Albumin/Globulin Ratio 1.1 Triglycerides 307 H D Cholesterol 178 LDL Cholesterol Direct 102 HDL Cholesterol 45 Blood Type Antibody Screen BBK History Checked 08/02/18 18:00 PT INR APTT Sodium Potassium Chloride Carbon Dioxide Anion Gap BUN Creatinine Est GFR ( Amer) Est GFR (Non-Af Amer) POC Glucose (mg/dL) Random Glucose Calcium Total Bilirubin AST ALT Alkaline Phosphatase Troponin I Total Protein Albumin Globulin Albumin/Globulin Ratio Triglycerides Cholesterol LDL Cholesterol Direct HDL Cholesterol Blood Type A POSITIVE Antibody Screen Negative BBK History Checked Patient has bt Assessment & Plan - Assessment and Plan (Free Text) Assessment: CT head : normal. A/p: 42 yr old male with no signs or symptoms of stroke, most likely weakness secondary to fall and cervicalgia. PLan: 1. May be dcd home and follow up prn. Thank you Dr. damian Neurology
--- NOTE | 2018-08-03 15:49 | CP.PCM.HP ---
History of Present Illness - History of Present Illness History of Present Illness: This is a 42 y/o male admitted for left upper extremity numbness after cocaine use. He denies any headache or chest pain, He denies being a regular chronic user of cocaine. He claims that he used it to ease the pain on his lowqer backl which was not relieved by po pain medications. Past Patient History - Infectious Disease Hx of Infectious Diseases: None - Past Medical History & Family History Past Medical History?: Yes - Past Social History Smoking Status: Never Smoked - CARDIAC Hx Cardiac Disorders: Yes Hx Congestive Heart Failure: No Hx Hypercholesterolemia: No Hx Hypertension: Yes - PULMONARY Hx Respiratory Disorders: No Hx Chronic Obstructive Pulmonary Disease (COPD): No - NEUROLOGICAL Hx Neurological Disorder: No Hx Seizures: No - HEENT Hx HEENT Problems: No - RENAL Hx Chronic Kidney Disease: No - ENDOCRINE/METABOLIC Hx Endocrine Disorders: No Hx Hypothyroidism: No - HEMATOLOGICAL/ONCOLOGICAL Hx Blood Disorders: No Hx Human Immunodeficiency Virus (HIV): No - INTEGUMENTARY Hx Dermatological Problems: No - MUSCULOSKELETAL/RHEUMATOLOGICAL Hx Musculoskeletal Disorders: Yes Hx Arthritis: No Hx Back Pain: Yes Hx Falls: Yes Hx Rheumatoid Arthritis: No - GASTROINTESTINAL Hx Gastrointestinal Disorders: Yes Hx Gall Bladder Disease: Yes (gallstones) - GENITOURINARY/GYNECOLOGICAL Hx Genitourinary Disorders: No Hx Sexually Transmitted Disorders: No - PSYCHIATRIC Hx Psychophysiologic Disorder: Yes Hx Anxiety: Yes Hx Substance Use: (Marijuana use) - SURGICAL HISTORY Hx Appendectomy: Yes - ANESTHESIA Hx Anesthesia: Yes Hx Anesthesia Reactions: No Hx Malignant Hyperthermia: No Has any member of the family had a problem w/ anesthesia?: No Meds Allergies/Adverse Reactions: Allergies Allergy/AdvReac Type Severity Reaction Status Date / Time No Known Allergies Allergy Verified 06/03/18 12:05 Results - Vital Signs Recent Vital Signs: Last Vital Signs Temp 98.2 F 08/03/18 12:35 Pulse 66 08/03/18 12:35 Resp 20 08/03/18 12:35 BP 146/92 H 08/03/18 12:35 Pulse Ox 97 08/03/18 12:35 - Labs Result Diagrams: 08/02/18 18:00 Labs: Laboratory Results - last 24 hr 08/02/18 08/02/18 08/02/18 17:57 18:00 18:00 PT INR APTT Sodium 144 Potassium 4.5 Chloride 109 H Carbon Dioxide 20 L Anion Gap 20 BUN 11 Creatinine 0.8 Est GFR ( Amer) > 60 Est GFR (Non-Af Amer) > 60 POC Glucose (mg/dL) 175 H Random Glucose 164 H Hemoglobin A1c 6.2 Calcium 8.8 Total Bilirubin 0.2 AST 62 H D ALT 85 H D Alkaline Phosphatase 70 Troponin I < 0.0120 Total Protein 8.7 H Albumin 4.6 Globulin 4.1 H Albumin/Globulin Ratio 1.1 Triglycerides 307 H D Cholesterol 178 LDL Cholesterol Direct 102 HDL Cholesterol 45 Blood Type Antibody Screen BBK History Checked 08/02/18 08/02/18 18:00 18:00 PT 11.3 INR 1.0 APTT 31.1 Sodium Potassium Chloride Carbon Dioxide Anion Gap BUN Creatinine Est GFR ( Amer) Est GFR (Non-Af Amer) POC Glucose (mg/dL) Random Glucose Hemoglobin A1c Calcium Total Bilirubin AST ALT Alkaline Phosphatase Troponin I Total Protein Albumin Globulin Albumin/Globulin Ratio Triglycerides Cholesterol LDL Cholesterol Direct HDL Cholesterol Blood Type A POSITIVE Antibody Screen Negative BBK History Checked Patient has bt
[2018-08-03 16:02] VITALS: BP 154/93; PULSE 70; TEMP 98.5; O2SAT 100
--- NOTE | 2018-08-03 20:18 | CARD ---
APPROVED REPORT Date of service: 08/02/2018 EKG Measurement Heart [id number] <Conclusion> Normal sinus rhythm Right bundle branch block Abnormal ECG
== END 2018-08-03 16:51 | disposition home or self-care (01) ==
LOC: H.ER 17:46 → H.ERHOLD 18:37 → H.TEL 22:13
PROVIDERS: ADMIT Family Medicine; ATTEND Family Medicine
DX: M54.2 Cervicalgia (principal); R07.9 Chest pain, unspecified; F14.90 Cocaine use, unspecified, uncomplicated; F12.90 Cannabis use, unspecified, uncomplicated; R53.1 Weakness; E11.9 Type 2 diabetes mellitus without complications; I10 Essential (primary) hypertension; F41.9 Anxiety disorder, unspecified; Z91.81 History of falling
CPT/HCPCS: 70450; 71045; 80053; 80061; 82948; 83036; 84484; 85610; 85730; 86850; 86900; 93005; 99285; G0378; J2060; J7030

== ENCOUNTER 2018-10-04 19:49 | Emergency (ER) | payer MEDICARE ==
[2018-10-04 19:50] VITALS: BMI 33.5
[2018-10-04 19:52] VITALS: TEMP 98; O2SAT 98
--- NOTE | 2018-10-04 20:17 | ED PDOC ---
HPI: Back Time Seen by Provider: 10/04/18 20:05 Chief Complaint (Nursing): Back Pain Chief Complaint (Provider): back pain History Per: Patient History/Exam Limitations: no limitations Onset/Duration Of Symptoms: Days Current Symptoms Are (Timing): Still Present Quality Of Discomfort: "Pain" Exacerbating Factor(s): Turning, Movement Additional Complaint(s): 42 y/o male brought in by EMS for evaluation of neck and back pain x days. Patient states he has had fusions to cspine and lspine and has pain "every day". Patient poor historian; admits to drinking and smoking marijuana today. Past Medical History Reviewed: Historical Data, Nursing Documentation, Vital Signs Vital Signs: Last Vital Signs Temp 98.0 F 10/04/18 19:51 Pulse 88 10/04/18 19:51 Resp 20 10/04/18 19:51 BP 135/72 10/04/18 19:51 Pulse Ox 98 10/04/18 19:51 - Medical History PMH: Anxiety, Back Problems, Diabetes, Gall Bladder Disease (gallstones), HTN Denies: Arthritis, CHF, COPD, Hepatitis, HIV, Hypercholesterolemia, Hypothyroidism, Chronic Kidney Disease, Rheumatoid Arthritis, Seizures, Sexually Transmitted Disease - Surgical History Surgical History: Appendectomy, Back Surgery (neck fusion x 2 last time a year ago) - Family History Family History: States: Unknown Family Hx - Social History Alcohol: None Drugs: Cannabis - Immunization History Hx Tetanus Toxoid Vaccination: No Hx Influenza Vaccination: Yes Hx Pneumococcal Vaccination: No - Home Medications Home Medications: Ambulatory Orders Medication Instructions Recorded Dextroamphetamine/Amphetamine 20 mg PO BID 08/02/18 [Adderall 20 mg Tablet] Nebivolol [Bystolic] 5 mg PO DAILY 08/02/18 LORazepam [Ativan] 0.5 mg PO BID PRN #30 tab 08/03/18 Lidocaine 5% [Lidoderm] 1 patch TOP DAILY PRN #7 patch 10/05/18 - Allergies Allergies/Adverse Reactions: Allergies Allergy/AdvReac Type Severity Reaction Status Date / Time No Known Allergies Allergy Verified 06/03/18 12:05 Review of Systems ROS Statement: Except As Marked, All Systems Reviewed And Found Negative Musculoskeletal: Positive for: Neck Pain, Back Pain Physical Exam - Reviewed Nursing Documentation Reviewed: Yes Vital Signs Reviewed: Yes - Physical Exam Appears: Positive for: Well, Non-toxic, Uncomfortable (tearful) Head Exam: Positive for: ATRAUMATIC, NORMAL INSPECTION, NORMOCEPHALIC Skin: Positive for: Normal Color Eye Exam: Positive for: Normal appearance ENT: Positive for: Normal ENT Inspection Cardiovascular/Chest: Positive for: Regular Rate, Rhythm Respiratory: Positive for: Normal Breath Sounds Gastrointestinal/Abdominal: Positive for: Normal Exam Back: Positive for: Muscle Spasm (bilateral paralumbar tenderness). Negative for: L CVA Tenderness, R CVA Tenderness, Vertebral Tenderness Extremity: Positive for: Normal ROM Neurologic/Psych: Positive for: Alert - Laboratory Results Result Diagrams: 10/04/18 20:27 10/04/18 20:27 - ECG O2 Sat by Pulse Oximetry: 98 - Progress ED Course And Treament: -cbc -cmp -alcohol -urinalysis -urine drug screen -IV toradol 20:50 Patient attempting to get out of bed with unsteady gait; sits on the floor crying Asked patient multiple times for safety to return to bed 21:05 Patient again out of bed; gait unsteady Attempts to de-escalate unsuccessful. Dr. Olmedo at bedside; will medication for acute psychosis/agitation 22:30 Patient sleeping, no distress; vitals stable on monitor 00:00 Patient sleeping, no distress; vitals stable on monitor 1:30 Patient sleeping, no distress; vitals stable on monitor 3:00 Patient sleeping, no distress; vitals stable on monitor 4:30 Patient sleeping, no distress; vitals stable on monitor 6:00 Patient awake, alert, oriented x3. Ambulating steady gait Patient educated on findings, discharged with rx Lidoderm patches. Advised to continue previously prescribed NSAIDs PRN pain Follow up with PMD/pain management Return precautions given Disposition - Clinical Impression Clinical Impression: Chronic pain, Alcohol intoxication - Patient ED Disposition Is Patient to be Admitted: No Counseled Patient/Family Regarding: Studies Performed, Diagnosis, Need For Followup, Rx Given - Disposition Disposition: Routine/Home Disposition Time: 06:02 Condition: IMPROVED Prescriptions: Lidocaine 5% [Lidoderm] 1 patch TOP DAILY PRN #7 patch PRN Reason: Pain, Mild (1-3) Instructions: Alcohol Use - When Is Drinking a Problem?, Chronic Pain (DC) Forms: [employer] (Indonesian)
[2018-10-04 21:15] LABS: BASO # 0.1 K/uL (0.0-0.2); BASO % 0.7 % (0.0-2.0); EOS # 0.1 K/uL (0.0-0.7); EOS % 1.8 % (0.0-4.0); HEMOGLOBIN 15.7 g/dL (12.0-18.0); LYMPH # 2.7 K/uL (1.0-4.3); LYMPH % 35.1 % (20.0-40.0); MEAN CELL VOLUME 91.4 fl (80.0-94.0); MEAN CORPUSCULAR HEMOGLOBIN 31.5 pg (27.0-31.0); MEAN CORPUSCULAR HGB CONC 34.4 g/dL (33.0-37.0); MEAN PLATELET VOLUME 8.1 fl (7.2-11.7); MONO % 12.7 % (0.0-10.0); NEUT # 3.9 K/uL (1.8-7.0); NEUT % 49.7 % (50.0-75.0); NRBC % 0.1 % (0.0-0.0); RBC 4.98 Mil/uL (4.40-5.90); RED CELL DISTRIBUTION WIDTH 13.1 % (11.5-14.5); WHITE BLOOD COUNT 7.8 K/uL (4.8-10.8)
[2018-10-04 21:21] LABS: URINE BILIRUBIN NEGATIVE (NEGATIVE); URINE BLOOD NEGATIVE (NEGATIVE); URINE CLARITY CLEAR (Clear); URINE COLOR COLORLESS (YELLOW); URINE GLUCOSE (UA) NEG (NEGATIVE); URINE LEUKOCYTE ESTERASE NEG Leu/uL (Negative); URINE PROTEIN NEGATIVE (NEGATIVE); URINE UROBILINOGEN 0.2-1.0 mg/dL (0.2-1.0)
[2018-10-04 21:35] LABS: ALB/GLOB RATIO 1.1 (1.0-2.1); ALBUMIN 4.2 g/dL (3.5-5.0); ALT/SGPT 86 U/L (21-72); AST/SGOT 109 U/L (17-59); BLOOD UREA NITROGEN 19 mg/dl (9-20); CALCIUM 8.9 mg/dL (8.4-10.2); GFR NON-AFRICAN AMERICAN > 60
[2018-10-04 22:06] LABS: BARBITURATES, UR NEGATIVE (NEGATIVE); BENZODIAZEPINES, UR NEGATIVE (NEGATIVE); OPIATES, UR NEGATIVE (NEGATIVE); PHENCYCLIDINE, UR NEGATIVE (NEGATIVE)
[2018-10-05 07:10] VITALS: BP 127/70; PULSE 78; RESP 16
== END 2018-10-05 06:00 | disposition home or self-care (01) ==
LOC: H.ER 19:49
DX: M54.9 Dorsalgia, unspecified (principal); F10.129 Alcohol abuse with intoxication, unspecified; E11.9 Type 2 diabetes mellitus without complications; F12.90 Cannabis use, unspecified, uncomplicated; F41.9 Anxiety disorder, unspecified; G89.29 Other chronic pain; I10 Essential (primary) hypertension
CPT/HCPCS: 80053; 81003; 85025; 96372; 99283; G0480; J1630; J1885; J2060

== ENCOUNTER 2018-10-16 01:50 | Emergency (ER) | payer MEDICARE ==
[2018-10-16 01:51] VITALS: BMI 33.5
[2018-10-16] MEDS ORDERED: Simethicone 80 mg Chewtab PO STA (02:49)
--- NOTE | 2018-10-16 03:02 | ED PDOC ---
HPI: Abdomen Time Seen by Provider: 10/16/18 02:18 Chief Complaint (Nursing): Abdominal Pain History Per: Patient History/Exam Limitations: no limitations Location Of Pain/Discomfort: Diffuse Additional Complaint(s): 42 year old with DM, HTN, anxiety presenting with abdominal pain. States he has had pain since Thursday, states the pain comes and goes, he states he feels a vibrating in his abdomen and sometimes sees his abdomen moving in certain parts. States it is both right and left sided. States he has not been having his usual complete bowel movements. Denies nausea, vomiting, diarrhea, fevers. He was concerned about kidney stones. Denies urinary symptoms, no hematuria. PMD: Dr. Bennett Past Medical History Reviewed: Historical Data, Nursing Documentation, Vital Signs Vital Signs: Last Vital Signs Temp 97.7 F 10/16/18 02:00 Pulse 75 10/16/18 02:00 Resp 18 10/16/18 02:00 BP 143/81 10/16/18 02:00 Pulse Ox 98 10/16/18 02:00 - Medical History PMH: Anxiety, Back Problems, Diabetes, Gall Bladder Disease (gallstones), HTN Denies: Arthritis, CHF, COPD, Hepatitis, HIV, Hypercholesterolemia, Hypothyroidism, Chronic Kidney Disease, Rheumatoid Arthritis, Seizures, Sexually Transmitted Disease - Surgical History Surgical History: Appendectomy, Back Surgery (neck fusion x 2 last time a year ago) - Family History Family History: States: Unknown Family Hx - Immunization History Hx Tetanus Toxoid Vaccination: No Hx Influenza Vaccination: Yes Hx Pneumococcal Vaccination: No - Home Medications Home Medications: Ambulatory Orders Medication Instructions Recorded Dextroamphetamine/Amphetamine 20 mg PO BID 08/02/18 [Adderall 20 mg Tablet] Nebivolol [Bystolic] 5 mg PO DAILY 08/02/18 LORazepam [Ativan] 0.5 mg PO BID PRN #30 tab 08/03/18 Lidocaine 5% [Lidoderm] 1 patch TOP DAILY PRN #7 patch 10/05/18 Docusate Sodium [Dulcolax Stool 100 mg PO DAILY #12 capsule 10/16/18 Softener] Simethicone [Gas Relief 80] 80 mg PO DAILY #12 ctb 10/16/18 - Allergies Allergies/Adverse Reactions: Allergies Allergy/AdvReac Type Severity Reaction Status Date / Time No Known Allergies Allergy Verified 06/03/18 12:05 Review of Systems ROS Statement: Except As Marked, All Systems Reviewed And Found Negative Gastrointestinal: Positive for: Abdominal Pain. Negative for: Nausea, Vomiting, Diarrhea Genitourinary Male: Negative for: Dysuria, Frequency, Incontinence, Hematuria Physical Exam - Reviewed Nursing Documentation Reviewed: Yes Vital Signs Reviewed: Yes - Physical Exam Appears: Positive for: Well, Non-toxic, No Acute Distress Head Exam: Positive for: ATRAUMATIC, NORMAL INSPECTION, NORMOCEPHALIC Skin: Positive for: Normal Color, Warm, DRY Eye Exam: Positive for: EOMI, Normal appearance, PERRL ENT: Positive for: Normal ENT Inspection Neck: Positive for: Normal, Painless ROM Cardiovascular/Chest: Positive for: Regular Rate, Rhythm Respiratory: Positive for: CNT, Normal Breath Sounds Gastrointestinal/Abdominal: Positive for: Normal Exam, Soft. Negative for: Tenderness, Organomegaly, Mass, Distended, Guarding, Rebound Back: Positive for: Normal Inspection. Negative for: L CVA Tenderness, R CVA Tenderness Extremity: Positive for: Normal ROM Neurological/Psych: Positive for: Awake, Alert, Normal Tone - ECG O2 Sat by Pulse Oximetry: 98 Pulse Ox Interpretation: Normal Medical Decision Making Medical Decision Makin42 year old with abdominal pain --Very well appearing, no distress, nonfocal exam --Not concerned for kidney stone, likely gas or constipation --Will get obstructive series, provide symptomatic relief and re-eval 0548 Patient reports feeling better and requires no further treatment in the ED at this time. Patient will be discharged home. Counseling was provided and all questions were answered regarding diagnosis Disposition - Clinical Impression Clinical Impression: Abdominal bloating - Patient ED Disposition Is Patient to be Admitted: No - Disposition Referrals: Sajan Bennett MD [Staff Provider] - Disposition: Routine/Home Disposition Time: 05:48 Condition: IMPROVED Prescriptions: Docusate Sodium [Dulcolax Stool Softener] 100 mg PO DAILY #12 capsule Simethicone [Gas Relief 80] 80 mg PO DAILY #12 ctb Instructions: Gas and Bloating Forms: [facility] ([employer])
[2018-10-16 04:20] LABS: URINE BACTERIA OCC (<OCC); URINE BILIRUBIN NEGATIVE (NEGATIVE); URINE BLOOD NEGATIVE (NEGATIVE); URINE CLARITY CLOUDY (Clear); URINE COLOR YELLOW (YELLOW); URINE GLUCOSE (UA) NEG (NEGATIVE); URINE LEUKOCYTE ESTERASE NEG Leu/uL (Negative); URINE PROTEIN NEGATIVE (NEGATIVE); URINE UROBILINOGEN 0.2-1.0 mg/dL (0.2-1.0)
[2018-10-16 06:02] VITALS: BP 130/77; PULSE 96; RESP 16; TEMP 99
--- NOTE | 2018-10-16 08:54 | RAD ---
Date of service: 10/16/2018 PROCEDURE: Radiographs of the chest and abdomen (obstructive series) HISTORY: diffuse abd pain COMPARISON: No prior. TECHNIQUE: AP radiograph of the chest, with upright and supine radiographs of the abdomen. FINDINGS: CHEST: Lungs: Clear. Cardiovascular: Normal size heart. No pulmonary vascular congestion. No aortic atherosclerotic calcification present Pleura: No pleural fluid. No pneumothorax. Other findings: None. ABDOMEN AND PELVIS: Bowel: Unremarkable bowel gas pattern. No evidence of mechanical obstruction. Free air: None. Bones: Unremarkable. Other findings: None. IMPRESSION: Unremarkable radiographs of chest and abdomen. No evidence of mechanical bowel obstruction.
[2018-10-16 19:24] VITALS: O2SAT 98
--- NOTE | 2018-10-16 21:09 | CARD ---
APPROVED REPORT Date of service: 10/16/2018 EKG Measurement Heart [id number] <Conclusion> Normal sinus rhythm Right bundle branch block Abnormal ECG
== END 2018-10-16 06:01 | disposition home or self-care (01) ==
LOC: H.ER 01:50
DX: R14.0 Abdominal distension (gaseous) (principal); E11.9 Type 2 diabetes mellitus without complications; I10 Essential (primary) hypertension